=== PATIENT | female | born 1960 | race Caucasian/White ===

== ENCOUNTER 2016-06-19 14:55 | Inpatient (IN) | payer OTHER, MEDICARE ==
[~2016-06-19] VITALS: Ht 160 cm; Wt 90.7 kg
--- NOTE | 2016-06-19 15:08 | ED AMS/SEIZURE/WEAK/DIZZY ---
History of Present Illness General Chief Complaint: General Adult Stated Complaint: BIBA GEN WEAKNESS Source: patient, EMS Exam Limitations: no limitations Vital Signs & Intake/Output Vital Signs & Intake/Output Vital Signs Date Time Temp Pulse Resp B/P Pulse O2 O2 Flow FiO2 Ox Delivery Rate 06/19 1700 101.9 06/19 1655 101.9 121 18 134/90 98 06/19 1510 98.8 108 18 145/67 96 Room Air Allergies Coded Allergies: MDX - Steroid (Steroid) (UNKNOWN 07/09/11) Sulfa (Sulfonamide Antibiotics) (UNKNOWN 08/15/15) methylprednisolone (UNKNOWN 08/15/15) oxybutynin (UNKNOWN 08/15/15) solifenacin (UNKNOWN 08/15/15) tolterodine (UNKNOWN 08/15/15) Reconcile Medications Amantadine HCl (Amantadine) 100 MG TABLET 1 TAB PO BID MS (Reported) Amoxicillin/Potassium Clav (Augmentin 875-125 Tablet) 875 MG-125 MG TABLET 1 TAB PO BID UTI Atorvastatin Calcium (Lipitor) 20 MG TABLET 1 TAB PO DAILY HLD (Reported) Cholecalciferol (Vitamin D3) 1,000 UNIT TABLET 5 TAB PO DAILY VIT D (Reported ) Dalfampridine (Ampyra) 10 MG TAB.ER.12H 2 TAB PO BID MS (Reported) Glatiramer Acetate (Copaxone) 40 MG/ML SYRINGE 1 SYR SC Friday MS (Reported) Lisinopril (Prinivil) 10 MG TABLET 1 TAB PO DAILY HTN (Reported) Methylphenidate Hydrochloride (Ritalin) 10 MG TABLET 1 TAB PO BID ADD ( Reported) Multivitamin (Daily Value) 1 EACH TABLET 1 TAB PO DAILY MV (Reported) Paroxetine HCl (Paxil) 10 MG TABLET 1 TAB PO DAILY MOOD (Reported) Triage Nurses Notes Reviewed? yes Onset: Gradual Duration: week(s): (3) Timing: recent history Injury Environment: home Severity: severe No Modifying Factors: none Associated Symptoms: WEAKNESS, URINARYA INCONTINENCE HPI: 55-year-old female who presents to the ER by prison for chief complaint of progressive onset of weakness over the past 3 weeks. She has a history of MS currently on Copaxone. According to the sister 3 weeks ago she had URI symptoms and was determined that she had a cold. Never spiked a fever. She was in bed and couldn't get up for 3 days but then improved somewhat. However in the last 2 weeks her symptoms have gotten slowly worse. They called Dr. Katie Hoang and a visiting nurse out to the house on Friday. They examined her and said that her lungs were clear. The remaining back out to the house today. Today they wanted to bring her to her primary care doctor for evaluation but she couldn't walk down the stairs to get out of the house. She is also newly incontinent over the past one day. No dysuria or hematuria. No history of frequent UTIs. She's never been hospitalized for her diagnosis of MS. She was diagnosed at the age of 38. She does go to outpatient specials to receive injections of Past History Travel History Traveled to [place] past 21 day No Medical History Any Pertinent Medical History? see below for history Neurological: multiple sclerosis Cardiovascular: hypertension Surgical History Surgical History: none Psychosocial History Tobacco Use: Current Daily Use Daily Tobacco Use Amount/Type: => 5 Cigarettes daily Family History Hx Contributory? No Review of Systems Review of Systems Constitutional: Reports: malaise, weakness. Denies: chills, fever. EENTM: Reports: no symptoms. Respiratory: Denies: cough, short of breath. Cardiovascular: Denies: chest pain, palpitations. GI: Denies: abdominal pain. Genitourinary: Reports: see HPI (INCONTINENCE), frequency. Musculoskeletal: Denies: joint pain, joint swelling. Skin: Reports: no symptoms. Neurological/Psychological: Reports: no symptoms. Hematologic/Endocrine: Reports: polyuria. Denies: bruising, bleeding. Immunologic/Allergic: Denies: splenectomy. All Other Systems: Reviewed and Negative Physical Exam Physical Exam General Appearance: well developed/nourished, alert, awake, moderate distress, obese Head: atraumatic, normal appearance Eyes: Bilateral: normal appearance, PERRL, EOMI. Ears, Nose, Throat: normal pharynx, normal ENT inspection, hearing grossly normal Neck: normal inspection, supple, full range of motion Respiratory: normal breath sounds, chest non-tender, no respiratory distress Cardiovascular: regular rate/rhythm Peripheral Pulses: 2+ radial (R), 2+ radial (L) Gastrointestinal: normal bowel sounds, soft, non-tender Extremities: normal range of motion Neurologic/Psych: no motor/sensory deficits, awake, alert Skin: intact, warm/dry Core Measures ACS in differential dx? No CVA/TIA Diagnosis: No Severe Sepsis Present: No Septic Shock Present: No ED Sepsis Exam Date of Focused Sepsis Exam: 06/19/16 Time of Focused Sepsis Exam: 1701 Sepsis Cardiac Exam: Tachycardia Sepsis Resp Exam: CTA Sepsis Cap Refill Exam: <2 Sec Sepsis Peripheral Pulse Exam: Normal Sepsis Peripheral Pulse Location: Radial Sepsis Skin Color Exam: Normal for Ethnicity Skin Temp/Moisture Exam: Warm/Dry Progress Differential Diagnosis: UTI, SEPSIS, PNEUMONIA, DEHYDRATION, KASSY, MS EXACERBATION Plan of Care: Orders Procedure Date/time Status Patient Data 06/19 1712 Active Admit to inpatient 06/19 1639 Active Add-on Test (ER Only) 06/19 1631 Active BLOOD CULTURE 06/19 1619 Active CULTURE,URINE 06/19 1544 Active Straight Cath 06/19 1520 Active URINALYSIS 06/19 1508 Complete TROPONIN LEVEL 06/19 1508 Complete COMPREHENSIVE METABOLIC PANEL 06/19 1508 Complete CBC WITHOUT DIFFERENTIAL 06/19 1508 Complete EKG 06/19 1508 Active Laboratory Tests 06/19/16 1604: Anion Gap 10, Estimated GFR 52 L, BUN/Creatinine Ratio 12.7, Glucose 118 H, Calcium 9.3, Total Bilirubin 0.4, AST 30, ALT 61 H, Alkaline Phosphatase 161 H , Troponin I < 0.01, Total Protein 6.4, Albumin 3.5, Globulin 2.9, Albumin/ Globulin Ratio 1.2, CBC w Diff MAN DIFF ORDERED, RBC 4.26, MCV 86.9, MCH 28.8, RDW 13.4, MPV 7.8, Gran % 94.6 H, Lymphocytes % 3.1 L, Monocytes % 2.1, Eosinophils % 0.1, Basophils % 0.1, Absolute Granulocytes 39.6 H, Absolute Lymphocytes 1.3, Absolute Monocytes 0.9 H, Absolute Eosinophils 0.1, Absolute Basophils 0, Platelet Estimate ADEQUATE, Normochromic RBCs VERIFIED, Polychromasia 1+, Poikilocytosis FEW, Anisocytosis 1+, Stomatocytes FEW, PUBS MCHC 33.2 06/19/16 1544: Urine Color YEL, Urine Clarity HAZY H, Urine pH 6.0, Ur Specific [place] 1.020, Urine Protein 100 H, Urine Ketones 15 H, Urine Nitrite POS H, Urine Bilirubin NEG, Urine Urobilinogen 0.2, Ur Leukocyte Esterase MOD H, Ur Microscopic SEDIMENT EXAMINED, Urine RBC 50-75 H, Urine WBC 50-75 H, Ur Epithelial Cells FEW, Urine Bacteria PACKD H, Urine Hemoglobin LARGE H, Urine Glucose NEG Microbiology 06/19 1650 BLOOD: Blood Culture - RECD 06/19 1628 BLOOD: Blood Culture - RECD 06/19 1544 URINE ROUT: Urine Culture - RECD labs, culture, iv fluids, iv abx ordered. D/W Dr. Diaz. Advises treatment for UTI, does not want to further her MS treatment at this time. EMILY [phone] (PAWEL RANGEL,JORGE) Diagnostic Imaging: Viewed by Me: Radiology Read. Discussed w/RAD: Radiology Read. CXR Impression: PATIENT: SANGEETA PRO PRESENT AGE: 55 PATIENT ACCOUNT NO: [id number] : 60 LOCATION: [facility] ORDERING PHYSICIAN: JORGE ARMAS MD SERVICE DATE: 06/19/16 EXAM TYPE: RAD - XRY-PORTABLE CHEST XRAY EXAMINATION: XR PORTABLE CHEST CLINICAL INFORMATION: Cough and weakness. COMPARISON: None TECHNIQUE: Portable AP view of the chest was obtained. FINDINGS: Cardia mediastinal silhouette is within normal limits. Lungs are clear. Bony thorax is intact. IMPRESSION: No acute pulmonary disease. DICTATED BY: SURENDRA CROOKS MD DATE/TIME DICTATED:06/19/161602 SHIPBOARD INTELLIGENCE ANALYST:BAR DATE/TIME TRANSCRIBED:06/19/161602 CONFIDENTIAL, DO NOT COPY WITHOUT APPROPRIATE AUTHORIZATION. <Electronically signed in Other Vendor System> SIGNED BY: SURENDRA CROOKS MD 06/19/16 1607 Initial ED EKG: RBBB, TACHYCARDIA AT 109 BPM Departure Departure Time of Disposition: 1644 Disposition: STILL A PATIENT Condition: Stable Clinical Impression Primary Impression: UTI (urinary tract infection) Secondary Impressions: KASSY (acute kidney injury), Exacerbation of multiple sclerosis, Sepsis Referrals: PATIENT HAS NO PRIMARY CARE DR Departure Forms: Customer Survey General Discharge Information Prescriptions: Current Visit Scripts Amoxicillin/Potassium Clav (Augmentin 875-125 Tablet) 1 TAB PO BID #19 TAB Admission Note Spoke With: REFUGIO CHEW MD Documentation of Exam: Documentation of any treatments & extenuating circumstances including Concerns Regarding Discharge (functional status, medication knowledge or non-compliance, living conditions, etc.) that warrant an admission rather than observation: [IV ABX, F/U BLOOD AND URINE CULTURE, IV FLUIDS, CONSULT DR DIAZ (AWARE OF PATIENT) WILL SEE FRIDAY, PHYSICAL THERAPY CONSULT]
--- NOTE | 2016-06-19 15:14 | NUR ---
55 YO FEMALE BIBA FROM HOME. PT HX OF MS. PT STATES SHE HAS BEEN GETTING PROGRESSIVEY WEAK AND UNABLE TO AMBULATE NOW. STATES SHE LIVES HOME WITH HER MOTHER AND HAS A VISITING NURSE A COUPLE DAYS A WEEK. PT STATES SHE HAS BEEN INCONTINENT OF URINE AT HOME. PT ALERT AND ORIENTED X3. DENIES PAIN ANYWHERE. PT NOTED WITH SWELLING TO BILATERAL LOWER EXTREMITIES, R>L. PER FAMILY SWELLING HAS COME DOWN. PER PT SHE HAD A COLD A COUPLE WEEKS AGO BUT WAS NOT ABLE TO SEE D/T RONEY FAIR, STATES THEY WERE IN TOUCH WITH DR ABOUT THE S/S.. PT C/O SLIGHT LINDEN. AT BEDSIDE FOR TONO
--- NOTE | 2016-06-19 16:00 | NUR ---
PT STRAIGHT CATH'D FOR URINE. OUTPUT 100CC DARK URINE. SPECIMEN SENT TO LAB
--- NOTE | 2016-06-19 16:07 | RADIOLOGY REPORT ---
EXAMINATION: XR PORTABLE CHEST CLINICAL INFORMATION: Cough and weakness. COMPARISON: None TECHNIQUE: Portable AP view of the chest was obtained. FINDINGS: Cardia mediastinal silhouette is within normal limits. Lungs are clear. Bony thorax is intact. IMPRESSION: No acute pulmonary disease.
--- NOTE | 2016-06-19 16:08 | NUR ---
BLOOD WORK DRAWN AND SENT TO LAB PT STATING "IM JUST TIRED AND WANT TO TRY TO SLEEP" LIGHTS DIMMED, CALL HARDY IN REACH. CORA REMAINS AT BEDSIDE.
--- NOTE | 2016-06-19 16:12 | NUR ---
500CC BOLUS INFUSING PER ORDER AT THIS TIME
[2016-06-19 16:22] LABS: ABSOLUTE BASOPHIL COUNT 0 /CUMM (0.0-0.2); ABSOLUTE GRANULOCYTE CT 39.6 /CUMM (1.4-6.5); BASOPHIL % 0.1 % (0.0-2.0)
[2016-06-19 16:28] LABS: ABSOLUTE EOSINOPHIL COUNT 0.1 /CUMM (0.0-0.7); ABSOLUTE LYMPH COUNT 1.3 /CUMM (1.2-3.4); ABSOLUTE MONOCYTE COUNT 0.9 /CUMM (0.10-0.60); EOSINOPHIL % 0.1 % (0-5); GRANULOCYTE % 94.6 % (42.2-75.2); MEAN CORPUSCULAR HGB 28.8 PG (27.0-31.0); MEAN CORPUSCULAR HGB CONC 33.2 G/DL (33.0-37.0); MEAN CORPUSCULAR VOLUME 86.9 FL (81.0-99.0); MEAN PLATELET VOLUME 7.8 FL (7.4-10.4); PLATELET COUNT 464 /CUMM (130-400); RBC DISTRIBUTION WIDTH 13.4 % (11.5-14.5); RED BLOOD CELL CT 4.26 /CUMM (4.20-5.40)
[2016-06-19 16:33] LABS: WHITE BLOOD CELL COUNT 41.8 /CUMM (4.8-10.8)
--- NOTE | 2016-06-19 16:40 | NUR ---
CRITICAL TEST RESULTS [id number] SANGEETA PRO 55 F TESTS AND RESULTS: WBC 41.8 Results received and read back by: DOMITILA FARNSWORTH Results received date and time: 06/19/16 1640 The following provider was notified of the results, and read the results back: JORGE ARMAS Notified date and time: 06/19/16 at 1640
--- NOTE | 2016-06-19 16:59 | NUR ---
BLOOD CULTURES X2 DRAWN AND SENT TO LAB. PT VERY DIFFICULT STICK, CULTURES OBTAINED FROM IV SITE. MD AT BEDSIDE TO DISUCSS PLAN OF CARE. PT TEMP 101.9 AT THIS TIME. IV TYLENOL INFUSING PER ORDER. PT MEDICATED WITH IV ROCEPHIN
--- NOTE | 2016-06-19 17:15 | History & Physical ---
MANUEL RANGEL,[facility] 06/19/16 1714: General Information and HPI MD Statement: I have seen and personally examined SANGEETA PRO and documented this H&P. The patient is a 55 year old F who presented with a patient stated chief complaint of [weakness and lethargic]. Source of Information: patient, family Exam Limitations: no limitations History of Present Illness: History was taken from the patient and her mother and sister was at bedside. 55-year-old female with a past medical history of MS, hypertension, hyperlipidemia mood disorder and trigger finger who presented with a chief complaint of generalized weakness. Patient did not had any MS exacerbation since she was diagnosed at age of 19. 3 weeks ago patient had symptoms of URI, after a sick contacts (her nephews). Patient was improving until 2 days ago when she started to feel weak and couldn' t ambulate. Patient denies headache, change in vision, change in hearing, focal neurological deficits. Patient denies dysuria, hematuria, fever or chills. Patient ambulates using a walker at baseline, she lives with her mother, her sister is her caregiver. Allergies/Medications Allergies: Coded Allergies: MDX - Steroid (Steroid) (UNKNOWN 07/09/11) Sulfa (Sulfonamide Antibiotics) (UNKNOWN 08/15/15) methylprednisolone (UNKNOWN 08/15/15) oxybutynin (UNKNOWN 08/15/15) solifenacin (UNKNOWN 08/15/15) tolterodine (UNKNOWN 08/15/15) Home Med list Amantadine HCl (Amantadine) 100 MG TABLET 1 TAB PO BID MS (Reported) Atorvastatin Calcium (Lipitor) 20 MG TABLET 1 TAB PO DAILY HLD (Reported) Cholecalciferol (Vitamin D3) 1,000 UNIT TABLET 5 TAB PO DAILY VIT D (Reported ) Dalfampridine (Ampyra) 10 MG TAB.ER.12H 2 TAB PO BID MS (Reported) Glatiramer Acetate (Copaxone) 40 MG/ML SYRINGE 1 SYR SC Friday MS (Reported) Lisinopril (Prinivil) 10 MG TABLET 1 TAB PO DAILY HTN (Reported) Methylphenidate Hydrochloride (Ritalin) 10 MG TABLET 1 TAB PO BID ADD ( Reported) Multivitamin (Daily Value) 1 EACH TABLET 1 TAB PO DAILY MV (Reported) Paroxetine HCl (Paxil) 10 MG TABLET 1 TAB PO DAILY MOOD (Reported) Past History Travel History Traveled to [place] past 21 day No Medical History Neurological: multiple sclerosis EENT: NONE Cardiovascular: hypertension, hyperlipidemia Respiratory: NONE Gastrointestinal: NONE Hepatic: NONE Renal: NONE Musculoskeletal: DROP FOOT (LEFT), trigger finger and both hands Psychiatric: depression Endocrine: NONE Surgical History Surgical History: surgery on the right little finger to release the trigger finger contraction Past Family/Social History Family History Relations & Conditions if any FATHER FH: asthma FH: diabetes mellitus FH: glaucoma FH: hyperlipidemia FH: hypertension FH: prostate cancer MOTHER Angina FH: breast cancer Review of Systems Review of Systems Constitutional: Reports: weakness. Denies: chills, fever. EENTM: Denies: blurred vision, double vision, visual changes, hearing changes. Cardiovascular: Denies: chest pain, palpitations. Respiratory: Denies: cough, hemoptysis, short of breath, wheezing. GI: Denies: abdominal pain, constipation, diarrhea, nausea, vomiting. Genitourinary: Denies: dysuria, hematuria. Neurological/Psychological: Reports: other (left foot drop). Denies: tingling, tremors. Exam & Diagnostic Data Last 24 Hrs of Vital Signs/I&O Vital Signs Date Time Temp Pulse Resp B/P Pulse O2 O2 Flow FiO2 Ox Delivery Rate 06/19 2034 Room Air 06/19 2014 100.3 125 24 178/80 92 Room Air 06/19 1847 101.2 100 18 132/84 98 Room Air 06/19 1751 101.3 06/19 1700 101.9 06/19 1655 101.9 121 18 134/90 98 06/19 1520 98 Room Air 06/19 1510 98.8 108 18 145/67 96 Room Air Intake & Output 06/19 1600 06/19 0800 06/19 0000 Intake Total Output Total Balance Patient 90.718 kg Weight Physical Exam General Appearance Alert, Oriented X3, Cooperative, No Acute Distress Skin No Rashes HEENT Atraumatic, PERRLA, EOMI, Mucous Membr. moist/pink Cardiovascular Regular Rate, Normal S1, Normal S2, No Murmurs Lungs Clear to Auscultation Abdomen Soft, No Tenderness Neurological Normal Speech, Strength at 5/5 X4 Ext (except left ankle 2/5), Cranial Nerves 3-12 NL Extremities No Clubbing, No Cyanosis, No Edema Last 24 Hrs of Labs/Ulises: Laboratory Tests 06/19/16 1604: Anion Gap 10, Estimated GFR 52 L, BUN/Creatinine Ratio 12.7, Glucose 118 H, Calcium 9.3, Total Bilirubin 0.4, AST 30, ALT 61 H, Alkaline Phosphatase 161 H , Troponin I < 0.01, Total Protein 6.4, Albumin 3.5, Globulin 2.9, Albumin/ Globulin Ratio 1.2, CBC w Diff MAN DIFF ORDERED, RBC 4.26, MCV 86.9, MCH 28.8, RDW 13.4, MPV 7.8, Gran % 94.6 H, Lymphocytes % 3.1 L, Monocytes % 2.1, Eosinophils % 0.1, Basophils % 0.1, Absolute Granulocytes 39.6 H, Absolute Lymphocytes 1.3, Absolute Monocytes 0.9 H, Absolute Eosinophils 0.1, Absolute Basophils 0, Platelet Estimate ADEQUATE, Normochromic RBCs VERIFIED, Polychromasia 1+, Poikilocytosis FEW, Anisocytosis 1+, Stomatocytes FEW, PUBS MCHC 33.2 06/19/16 1544: Urine Color YEL, Urine Clarity HAZY H, Urine pH 6.0, Ur Specific [place] 1.020, Urine Protein 100 H, Urine Ketones 15 H, Urine Nitrite POS H, Urine Bilirubin NEG, Urine Urobilinogen 0.2, Ur Leukocyte Esterase MOD H, Ur Microscopic SEDIMENT EXAMINED, Urine RBC 50-75 H, Urine WBC 50-75 H, Ur Epithelial Cells FEW, Urine Bacteria PACKD H, Urine Hemoglobin LARGE H, Urine Glucose NEG Microbiology 06/19 1650 BLOOD: Blood Culture - RECD 06/19 1628 BLOOD: Blood Culture - RECD 06/19 1544 URINE ROUT: Urine Culture - RECD Assessment/Plan Assessment: 55-year-old female with a past medical history of multiple sclerosis, however in neurological exam she has 5/5 except on the left ankle joint(history of drop foot). Patient started to have weakness within the last 48 hours. Even though that she denies any urinary symptoms, she was found to have UTI and WBCs of 41, 000. She was also found to have a creatinine of 1.1 (above baseline). She also had elevated ALTs and alkaline phosphatase. 1.UTI * Urine blood cultures * We will start patient on IV ceftriaxone [place] * IV normal saline 2. Hypertension, hyperlipidemia, mood disorder, and MS We will continue home meds including * amantadine, Copaxone as per Dr. Byrd (will see patient on Friday) * Lisinopril * Paxil * Lipitor 3. Skin fungal infection * Nystatin powder 3 times a day Regular diet DVT prophylaxis with heparin subcutaneous Full code As Ranked By This Provider Problem List: 1. UTI (urinary tract infection) 2. KSASY (acute kidney injury) Core Measures/Miscellaneous Acute Coronary Syndrome ACS Diagnosis: No Cerebrovascular Accident CVA/TIA Diagnosis: No Congestive Heart Failure CHF Diagnosis: No Venous Thromboembolism VTE Risk Factors: Acute medical illness, Age > 40 [facility] prophylaxis d/t: No contraindications No VTE Pharm Prophylaxis d/t: No contraindications VTE Diagnosis: No VTE Type: NONE VTE Confirmed by (Test): NONE Severe Sepsis Severe Sepsis Present: No Septic Shock Septic Shock Present: No Miscellaneous Documentation Attending Case Discussed With: REFUGIO CHEW MD Primary Care Physician: TREVA MERRITT MD, I. Patient sees these Specialists TREVA MERRITT MD, I. Level of Patient Care: General Medicine SHARAD OSPINA MD 06/19/16 1733: Resident Review Statement Resident Statement: examined this patient, discussed with physician/internist Other Findings: This is a 55-year-old lady with history significant for multiple sclerosis diagnosed at age 38 in the year 1997, hypertension, hyperlipidemia, mood disorder presents to the emergency room with her mother and sister with a chief complaint of difficulty getting out of bed, feeling weak and difficulty ambulating. Patient has not had a single MS exacerbation since her diagnosis over 19 years ago now. States that she has some URI-like symptoms couple weeks ago that started to get better but over the course of last couple of days she has been extremely weak, has been having difficulty getting out of bed. No vision changes, muscular or neuro deficits or scanning speech. Denies any dysuria, hematuria, pyuria, burning on urination. While in the emergency room she has a elevated white count and found to have a urinary tract infection. Chest x-ray is benign Labs show white count of 41,000, no bands Physical exam and neuro exam is benign; drop foot and left leg is chronic Assessment- 1. UTI 2. Hypokalemia 3.6 3. MS 4. HTN 5. HLD 6. Depression 7. KASSY Plan- GEN med admit Panculture Vitals per protocol 1 g ceftriaxone every 24 hours Replete potassium Okay to continue all MS meds which include amantadine, empyema, Copaxone per Dr. Byrd, he will see the patient on Friday IV fluids 2 L DVT prophylaxis with subcutaneous heparin Heart healthy diet Pain pathway next Full code JEEVAN RANGEL,REFUGIO 06/20/16 0810: Attending MD Review Statement Attending Statement Attending MD Statement: examined this patient, discuss w/resident/PA/SALES SERVICE COORDINATOR, agreed w/resident/PA/SALES SERVICE COORDINATOR, reviewed EMR data (avail) Attending Assessment/Plan: 55F PMH multiple sclerosis, HTN, HLD presenting with fever, generalized weakness , found to have WBC 40k and dirty UA. Hemodynamically stable. Started Ceftriaxone and IV fluids. Has chronic foot drop from MS, but no new neurological symptoms. Dr Wood was consulted, said do not treat for MS exacerbation and he will see her today. Cultures pending.
--- NOTE | 2016-06-19 17:18 | NUR ---
HOUSE STAFF AT BEDSIDE FOR EVAL
[2016-06-19] MEDS ORDERED: AMANTADINE100 M2 PO (17:44)
[2016-06-19] MEDS ORDERED: RITALIN10 MG PO (17:45)
[2016-06-19] MEDS ORDERED: AMPYRA10 M1 PO (17:45)
[2016-06-19] MEDS ORDERED: PRINIVIL10 M1 PO (17:45)
[2016-06-19] MEDS ORDERED: LIPITOR20 M2 PO (17:45)
[2016-06-19] MEDS ORDERED: DAILY VALUE1 EACH PO (17:46)
[2016-06-19] MEDS ORDERED: PAXIL10 M1 PO (17:46)
[2016-06-19] MEDS ORDERED: VITAMIN D31000 UNI2 PO (17:46)
[2016-06-19] MEDS ORDERED: COPAXONE40 MG/1 ML SC (17:50)
--- NOTE | 2016-06-19 17:51 | NUR ---
TEMP 101.3 AT THIS TIME. PT SITTING UP TALKING WITH FAMILY AT BEDSIDE. PT OFFERS NO COMPLAINTS AT THIS TIME. AWARE WAITING ON BED ASSIGNMENT
--- NOTE | 2016-06-19 18:24 | NUR ---
PT ASSIGNED ROOM 223-2
--- NOTE | 2016-06-19 18:48 | NUR ---
REPORT GIVEN TO DUC ON 2NA. DISTRIBUTION CALLED
[2016-06-19 20:15] VITALS: BP 178/80
--- NOTE | 2016-06-19 21:00 | NUR ---
PT A&Ox3, FALLING ASLEEP BETWEEN QUESTIONS DURING ADMISSION. FAMILY AT BEDSIDE TO HELP ANSWER QUESTIONS. ELEVATED B/P AND PULSE, NOTIFIED [employer] WORKER.
--- NOTE | 2016-06-19 23:19 | NUR ---
PT DENIES PAIN BUT HOT TO TOUCH, RECTAL TEMP 103.5 @ 2129. NOTIFIED SHILPI CHIRINOS MD. ADMINISTERED IV TYLENOL AND 2239 TEMP 101.7, PT FEELING BETTER, MORE ALERT, NOT HOT OR COLD. WILL PASS ON TO NIGHT NURSE, DIEGO Vallecillo
[2016-06-19 23:36] VITALS: BP 130/68
[2016-06-20 03:52] VITALS: BP 180/80
--- NOTE | 2016-06-20 04:16 | Event Note ---
Event Note Event Note: Both sets of bcx + for GNR. Pt tachycardic to 130's complained of SOB, satting at 90, with BP 180/80. Pt put on 2L NC and satting 95% Pt denies any SOB on NC, denies any CP, N/V/ dizziness. Have ordered cxr, cbc, bep, repeat lactic acid. Antibiotic coverage broadened; can taper pending culture results.
[2016-06-20 04:46] LABS: ABSOLUTE BASOPHIL COUNT 0.1 /CUMM (0.0-0.2); ABSOLUTE EOSINOPHIL COUNT 0 /CUMM (0.0-0.7); ABSOLUTE GRANULOCYTE CT 32.8 /CUMM (1.4-6.5); BASOPHIL % 0.4 % (0.0-2.0); EOSINOPHIL % 0 % (0-5); GRANULOCYTE % 93.9 % (42.2-75.2); HEMATOCRIT 34.2 % (37-47); MEAN CORPUSCULAR HGB 28.9 PG (27.0-31.0); MEAN CORPUSCULAR HGB CONC 33.3 G/DL (33.0-37.0); MEAN PLATELET VOLUME 7.8 FL (7.4-10.4); PLATELET COUNT 399 /CUMM (130-400); RBC DISTRIBUTION WIDTH 13.6 % (11.5-14.5); RED BLOOD CELL CT 3.93 /CUMM (4.20-5.40)
--- NOTE | 2016-06-20 04:49 | NUR ---
AT APPROX 0330 PATIENT WOKE UP AND COMPLAINED OF ACUTE SOB. PT PLACED IN HIGH CISNEROS'S POSITION. VS: BP 180/80, HR 133, RR 24, O2 90% ON RA, TEMP 101.7 RECTALLY. PT PLACED ON 02 2L NC WITH INCREASED SAT TO 96%. MD CHIRINOS MADE AWARE AND AT BEDSIDE. CONCURRENTLY, 4/4 BLOOD CULTURES WERE REPORTED POSITIVE FOR GRAM NEGATIVE RODS (BOTH AEROBIC AND ANEROBIC). STAT LABS WERE ORDERED AND PERFORMED. WILL CONTINUE TO CLOSELY MONITOR.
[2016-06-20 06:52] VITALS: BP 148/70
--- NOTE | 2016-06-20 07:29 | PN- Housestaff ---
MANUEL RANGEL,[facility] 06/20/16 0729: Subjective Follow-up For: Generalize weakness UTI Positive blood culture(bacteremia) Subjective: Temperature was 101.7 at 3 AM, WBCs 35. Ration had positive gram-negative rods on blood culture. Last night she desaturated, now she is saturating 95+ on 2 L of oxygen. Patient is complaining of mild cough productive of some phlegm but chest pain. Review of Systems Constitutional: Reports: see HPI. Denies: chills, fever, weakness. Objective Last 24 Hrs of Vital Signs/I&O Vital Signs Date Time Temp Pulse Resp B/P Pulse O2 O2 Flow FiO2 Ox Delivery Rate 06/20 0652 98.3 105 22 148/70 96 Nasal 2.0L Cannula 06/20 0544 99.1 06/20 0534 99.1 06/20 0353 101.7 24 93 Nasal 2.0L Cannula 06/20 0352 98.4 133 24 180/80 90 Room Air 06/20 0351 101.7 06/20 0111 99.0 06/19 2336 101.7 116 18 130/68 91 Room Air 06/19 2240 101.7 06/19 2141 103.5 06/19 2035 Room Air 06/19 2014 100.3 125 24 178/80 92 Room Air 06/19 1847 101.2 100 18 132/84 98 Room Air 06/19 1751 101.3 06/19 1700 101.9 06/19 1655 101.9 121 18 134/90 98 06/19 1520 98 Room Air 06/19 1510 98.8 108 18 145/67 96 Room Air Intake & Output 06/20 1600 06/20 0800 06/20 0000 Intake Total 1450 320 Output Total 100 Balance 1450 220 Intake, IV 970 200 Intake, Oral 480 120 Output, Urine 100 Patient 90.718 kg Weight Physical Exam General Appearance: Alert, Oriented X3, Cooperative, No Acute Distress Skin: No Rashes HEENT: Atraumatic, PERRLA, EOMI, Mucous Membr. moist/pink Cardiovascular: Regular Rate, Normal S1, Normal S2, No Murmurs Lungs: congested with decreased air entry all over lung bilaterally Abdomen: Soft, No Tenderness Neurological: Normal Speech, Strength at 5/5 X4 Ext (except left ankle( drop foot)) Extremities: +1 edema on lower extremity bilaterally Current Medications: Current Medications Sig/Vicki Start time Last Medication Dose Route Stop Time Status Admin Acetaminophen 1,000 MG Q6P PRN 06/19 2145 AC 06/20 N/A 1 UNIT IV 0351 Acetaminophen 650 MG Q6P PRN 06/19 1745 AC PO Acetaminophen 1,000 MG ONCE ONE 06/19 1700 DC 06/19 N/A 1 UNIT IV 06/19 1714 1700 Acetaminophen 0 .STK-MED ONE 06/19 1657 DC IV Acetaminophen/ 1 TAB Q6P PRN 06/19 1745 AC Hydrocodone Bitart PO Amantadine HCl 100 MG BID 06/19 2200 AC 06/19 PO 2209 Atorvastatin Calcium 20 MG 1700 06/20 1700 AC PO Ceftazidime 1,000 MG Q8H 06/20 0500 AC 06/20 IV 0525 Ceftriaxone Sodium 1,000 MG DAILY 06/20 1000 CAN Sodium Chloride 100 ML IV Ceftriaxone Sodium 0 .STK-MED ONE 06/19 1641 DC .ROUTE Ceftriaxone Sodium 1,000 MG ONCE ONE 06/19 1630 DC 06/19 IV 06/19 1631 1700 Cholecalciferol 5,000 IU DAILY 06/20 1000 AC PO Glatiramer Acetate 40 MG MoWeFr 06/19 1800 AC SC Heparin Sodium 5,000 UNIT Q8 06/19 2200 AC 06/20 (Porcine) SC 0525 Lisinopril 10 MG DAILY 06/20 1000 AC PO Methylphenidate HCl 10 MG 0730,1630 06/20 0730 AC PO Multivitamins 1 TAB DAILY 06/20 1000 AC Therapeutic PO Non-Formulary 0 SEE ADMIN CRITERIA 06/19 1800 UNVr Medication ANY Nystatin 1 GIULIANA TID 06/19 1834 AC 06/19 TOP 2145 Oxycodone/ 2 TAB Q6P PRN 06/19 1745 AC Acetaminophen PO Paroxetine HCl 10 MG DAILY 06/20 1000 AC PO Sodium Chloride 1,000 ML Q10H 06/19 1930 AC 06/20 IV 0627 Sodium Chloride 1,000 ML BOLUS ONE 06/19 1630 DC 06/19 IV 06/19 1729 1700 Sodium Chloride 500 ML BOLUS ONE 06/19 1545 DC 06/19 IV 06/19 1644 1612 Last 24 Hrs of Lab/Ulises Results Last 24 Hrs of Labs/Mics: Laboratory Tests 06/20/16 0600: Magnesium Cancelled, CBC w Diff Cancelled, WBC Cancelled, RBC Cancelled, Hgb Cancelled, Hct Cancelled, MCV Cancelled, MCH Cancelled, RDW Cancelled, Plt Count Cancelled, MPV Cancelled, [facility] Cancelled 06/20/16 0430: Anion Gap 10, Estimated GFR 52 L, BUN/Creatinine Ratio 14.5, Lactic Acid 1.2, Total Bilirubin 0.7, Direct Bilirubin 0.6 H, AST 28, ALT 53 H, Alkaline Phosphatase 142 H, Total Protein 5.6 L, Albumin 2.9 L, CBC w Diff MAN DIFF ORDERED, RBC 3.93 L, MCV 87.0, MCH 28.9, RDW 13.6, MPV 7.8, Gran % 93.9 H, Lymphocytes % 2.9 L, Monocytes % 2.8, Eosinophils % 0, Basophils % 0.4, Absolute Granulocytes 32.8 H, Segmented Neutrophils 96 H, Band Neutrophils 1, Absolute Lymphocytes 1.0 L, Lymphocytes 1 L, Monocytes 2, Absolute Monocytes 1.0 H, Absolute Eosinophils 0, Absolute Basophils 0.1, Platelet Estimate ADEQUATE, Polychromasia 1+, Ovalocytes FEW, [facility] 33.3, Fld Total RBCs Counted 100 06/20/16 0359: Lactic Acid Cancelled, CBC w Diff Cancelled, WBC Cancelled, RBC Cancelled, Hgb Cancelled, Hct Cancelled, MCV Cancelled, MCH Cancelled, RDW Cancelled, Plt Count Cancelled, MPV Cancelled, [facility] Cancelled 06/19/16 2120: Lactic Acid 1.4 06/19/16 1604: Anion Gap 10, Estimated GFR 52 L, BUN/Creatinine Ratio 12.7, Glucose 118 H, Calcium 9.3, Total Bilirubin 0.4, AST 30, ALT 61 H, Alkaline Phosphatase 161 H , Troponin I < 0.01, Total Protein 6.4, Albumin 3.5, Globulin 2.9, Albumin/ Globulin Ratio 1.2, CBC w Diff MAN DIFF ORDERED, RBC 4.26, MCV 86.9, MCH 28.8, RDW 13.4, MPV 7.8, Gran % 94.6 H, Lymphocytes % 3.1 L, Monocytes % 2.1, Eosinophils % 0.1, Basophils % 0.1, Absolute Granulocytes 39.6 H, Absolute Lymphocytes 1.3, Absolute Monocytes 0.9 H, Absolute Eosinophils 0.1, Absolute Basophils 0, Platelet Estimate ADEQUATE, Normochromic RBCs VERIFIED, Polychromasia 1+, Poikilocytosis FEW, Anisocytosis 1+, Stomatocytes FEW, PUBS MCHC 33.2 06/19/16 1544: Urine Color YEL, Urine Clarity HAZY H, Urine pH 6.0, Ur Specific Cool 1.020, Urine Protein 100 H, Urine Ketones 15 H, Urine Nitrite POS H, Urine Bilirubin NEG, Urine Urobilinogen 0.2, Ur Leukocyte Esterase MOD H, Ur Microscopic SEDIMENT EXAMINED, Urine RBC 50-75 H, Urine WBC 50-75 H, Ur Epithelial Cells FEW, Urine Bacteria PACKD H, Urine Hemoglobin LARGE H, Urine Glucose NEG Microbiology 06/200 NASOPHARYN: Influenza Virus A & B Rapid Smear - COMP 06/20 2119 LOWER RESP: Respiratory Culture - COLB 06/20 2119 LOWER RESP: Gram Stain - COLB 06/19 1650 BLOOD: Blood Culture - RES GRAM NEGATIVE RODS 06/19 1628 BLOOD: Blood Culture - RES GRAM NEGATIVE RODS 06/19 1544 URINE ROUT: Urine Culture - RECD Assessment/Plan Assessment: 55 year old female with a past medical history of MS, hypertension, hyperlipidemia and mood disorder who presented because of weakness and was found to have UTI . Patient initially was started on ceftriaxone that was switched to ceftazidime after she 2 x positive blood culture andurine culture for gram- negative rods. 1 septicemia secondary to UTI * Continue ceftazidime 1 g every 8 hours * Switch antibiotic based on sensitivity * Continue IV hydration with normal saline 2. KASSY and HTN * Stopped lisinopril * Start hydralazine when necessary * Repeat BEP daily 3. Skin fungal infection over lower abdomen * Continue nystatin powder 3 times a day 4. Hyperlipidemia * Continue Lipitor 5. MS and mood disorder * Continue home medication. Heart healthy diet DVT Px sc hep Full code Problem List: 1. KASSY (acute kidney injury) 2. Sepsis 3. Exacerbation of multiple sclerosis 4. UTI (urinary tract infection) Pain Ratin Pain Location: see A&P Pain Goal: Remain pain free Pain Plan: see A&P Tomorrow's Labs & Rationales: cbc and bep ZITA RANGEL,[facility] 06/20/16 1248: Attending MD Review Statement Attending Statement Attending MD Statement: examined this patient, discuss w/resident/PA/[employer]ISTORY PROFESSOR, agreed w/resident/PA/JEWISH HISTORY PROFESSOR, reviewed EMR data (avail), discussed with nursing, discussed with case mgmt, reviewed images, amended to note Attending Assessment/Plan: Patient seen and examined, feeling very exhausted and tired. Patient denies any pain, sob. She had a fever spike last night and her white blood cell count although slightly improved but still significantly high. Vital Signs Date Time Temp Pulse Resp B/P Pulse O2 O2 Flow FiO2 Ox Delivery Rate 06/20 0835 130/70 06/20 0800 Nasal 2.0L Cannula 06/20 0652 98.3 105 22 148/70 96 Nasal 2.0L Cannula 06/20 0544 99.1 06/20 0534 99.1 06/20 0353 101.7 24 93 Nasal 2.0L Cannula 06/20 0352 98.4 133 24 180/80 90 Room Air 06/20 0351 101.7 06/20 0111 99.0 06/19 2336 101.7 116 18 130/68 91 Room Air 06/19 2240 101.7 06/19 2141 103.5 06/19 2035 Room Air 06/19 2015 100.3 125 24 178/80 92 Room Air 06/19 1847 101.2 100 18 132/84 98 Room Air 06/19 1751 101.3 06/19 1700 101.9 06/19 1655 101.9 121 18 134/90 98 06/19 1520 98 Room Air 06/19 1510 98.8 108 18 145/67 96 Room Air on exam; aox3, nad. Looks somewhat lethargic. cv; s1,s2, rrr resp; clear abd; soft, nt, bs+ ext; no edema. skin: + fungal rash on groins. Laboratory Tests 06/20 06/20 0600 0430 Chemistry Sodium (137 - 145 mmol/L) 140 Potassium (3.5 - 5.1 mmol/L) 3.5 Chloride (98 - 107 mmol/L) 106 Carbon Dioxide (22 - 30 mmol/L) 23 Anion Gap (5 - 16) 10 BUN (7 - 17 mg/dL) 16 Creatinine (0.5 - 1.0 mg/dL) 1.1 H Estimated GFR (>60 ml/min) 52 L BUN/Creatinine Ratio (7 - 25 %) 14.5 Lactic Acid (0.7 - 2.1 mmol/L) 1.2 Magnesium Cancelled Total Bilirubin (0.2 - 1.3 mg/dL) 0.7 Direct Bilirubin (< 0.4 mg/dL) 0.6 H AST (14 - 36 U/L) 28 ALT (9 - 52 U/L) 53 H Alkaline Phosphatase (<127 U/L) 142 H Total Protein (6.3 - 8.2 g/dL) 5.6 L Albumin (3.5 - 5.0 g/dL) 2.9 L Hematology CBC w Diff Cancelled MAN DIFF ORDERED WBC (4.8 - 10.8 /CUMM) Cancelled 35.0 *H RBC (4.20 - 5.40 /CUMM) Cancelled 3.93 L Hgb (12.0 - 16.0 G/DL) Cancelled 11.4 L Hct (37 - 47 %) Cancelled 34.2 L MCV (81.0 - 99.0 FL) Cancelled 87.0 MCH (27.0 - 31.0 PG) Cancelled 28.9 RDW (11.5 - 14.5 %) Cancelled 13.6 Plt Count (130 - 400 /CUMM) Cancelled 399 MPV (7.4 - 10.4 FL) Cancelled 7.8 Gran % (42.2 - 75.2 %) 93.9 H Lymphocytes % (20.5 - 51.1 %) 2.9 L Monocytes % (1.7 - 9.3 %) 2.8 Eosinophils % (0 - 5 %) 0 Basophils % (0.0 - 2.0 %) 0.4 Absolute Granulocytes (1.4 - 6.5 /CUMM) 32.8 H Segmented Neutrophils (42.2 - 75.2 %) 96 H Band Neutrophils (0.0 - 5.0 %) 1 Absolute Lymphocytes (1.2 - 3.4 /CUMM) 1.0 L Lymphocytes (20.5 - 51.1 %) 1 L Monocytes (1.7 - 9.3 %) 2 Absolute Monocytes (0.10 - 0.60 /CUMM) 1.0 H Absolute Eosinophils (0.0 - 0.7 /CUMM) 0 Absolute Basophils (0.0 - 0.2 /CUMM) 0.1 Platelet Estimate (ADEQUATE) ADEQUATE Polychromasia 1+ Ovalocytes FEW PUBS MCHC (33.0 - 37.0 G/DL) Cancelled 33.3 Other Body Source Fld Total RBCs Counted (%) 100 06/20 06/19 06/19 0359 2120 1604 Chemistry Sodium (137 - 145 mmol/L) 138 Potassium (3.5 - 5.1 mmol/L) 3.6 Chloride (98 - 107 mmol/L) 102 Carbon Dioxide (22 - 30 mmol/L) 26 Anion Gap (5 - 16) 10 BUN (7 - 17 mg/dL) 14 Creatinine (0.5 - 1.0 mg/dL) 1.1 H Estimated GFR (>60 ml/min) 52 L BUN/Creatinine Ratio (7 - 25 %) 12.7 Glucose (65 - 99 mg/dL) 118 H Lactic Acid (0.7 - 2.1 mmol/L) Cancelled 1.4 Calcium (8.4 - 10.2 mg/dL) 9.3 Total Bilirubin (0.2 - 1.3 mg/dL) 0.4 AST (14 - 36 U/L) 30 ALT (9 - 52 U/L) 61 H Alkaline Phosphatase (<127 U/L) 161 H Troponin I (< 0.11 ng/ml) < 0.01 Total Protein (6.3 - 8.2 g/dL) 6.4 Albumin (3.5 - 5.0 g/dL) 3.5 Globulin (1.9 - 4.2 gm/dL) 2.9 Albumin/Globulin Ratio (1.1 - 2.2 %) 1.2 Hematology CBC w Diff Cancelled MAN DIFF ORDERED WBC (4.8 - 10.8 /CUMM) Cancelled 41.8 *H RBC (4.20 - 5.40 /CUMM) Cancelled 4.26 Hgb (12.0 - 16.0 G/DL) Cancelled 12.3 Hct (37 - 47 %) Cancelled 37.0 MCV (81.0 - 99.0 FL) Cancelled 86.9 MCH (27.0 - 31.0 PG) Cancelled 28.8 RDW (11.5 - 14.5 %) Cancelled 13.4 Plt Count (130 - 400 /CUMM) Cancelled 464 H MPV (7.4 - 10.4 FL) Cancelled 7.8 Gran % (42.2 - 75.2 %) 94.6 H Lymphocytes % (20.5 - 51.1 %) 3.1 L Monocytes % (1.7 - 9.3 %) 2.1 Eosinophils % (0 - 5 %) 0.1 Basophils % (0.0 - 2.0 %) 0.1 Absolute Granulocytes (1.4 - 6.5 /CUMM) 39.6 H Absolute Lymphocytes (1.2 - 3.4 /CUMM) 1.3 Absolute Monocytes (0.10 - 0.60 /CUMM) 0.9 H Absolute Eosinophils (0.0 - 0.7 /CUMM) 0.1 Absolute Basophils (0.0 - 0.2 /CUMM) 0 Platelet Estimate (ADEQUATE) ADEQUATE Normochromic RBCs VERIFIED Polychromasia 1+ Poikilocytosis FEW Anisocytosis 1+ Stomatocytes FEW PUBS MCHC (33.0 - 37.0 G/DL) Cancelled 33.2 06/19 1544 Urines Urine Color (YEL,AMB,STR) YEL Urine Clarity (CLEAR) HAZY H Urine pH (5.0 - 8.0) 6.0 Ur Specific Cool (1.001 - 1.035) 1.020 Urine Protein (NEG,<30 MG/DL) 100 H Urine Ketones (NEG) 15 H Urine Nitrite (NEG) POS H Urine Bilirubin (NEG) NEG Urine Urobilinogen (0.1 - 1.0 EU/dl) 0.2 Ur Leukocyte Esterase (NEG) MOD H Ur Microscopic SEDIMENT EXAMINED Urine RBC (0 - 5 /HPF) 50-75 H Urine WBC (0 - 2 /HPF) 50-75 H Ur Epithelial Cells (NONE,FEW) FEW Urine Bacteria (NEG/NONE) PACKD H Urine Hemoglobin (NEG) LARGE H Urine Glucose (N MG/DL) NEG A/P; 55 y/o F with pmh sig for MS, hypertension, hyperlipidemia mood disorder and trigger finger admitted with sepsis likely secondary to UTI and possible pyelonephritis as well as now having bacteremia. Patient also has generalized weakness likely secondary to the infection. Patient also has acute kidney injury likely secondary to dehydration. Continue IV antibiotics and follow-up on the cultures. Patient's antibiotics were broadened last night which I agree with and will let follow-up on the cultures and adjust and hepatic accordingly. Continue gentle IV hydration. Use hydralazine when necessary for uncontrolled hypertension. Will stop the STEFFEN inhibitor for now secondary to acute kidney injury. Continue on other current medications. Nystatin for fungal rash. DVT px: Heparin subcutaneous. PT evaluation will be obtained.
--- NOTE | 2016-06-20 08:13 | Admission Certification ---
Admission Certification Certification Statement - As attending physician, I certify that at the time of - admission, based on clinical presentation, severity of - symptoms, need for further diagnostic testing and - therapeutic interventions, and risk of adverse outcomes - without in-hospital treatment, in my clinical assessment, - this patient requires an acute hospital stay for a minimum - of two nights or longer. I have also considered psychsocial - factors such as support system, advanced age, financial - issues, cognitive issues, and failed out-patient treatments, - past re-admission history, safety of patient, and lack of - compliance as applicable. Specific rationale supporting this admission is: Sepsis secondary to UTI
[2016-06-20 14:43] VITALS: BP 138/60
[2016-06-20 22:10] VITALS: BP 158/84
[2016-06-21] VITALS (7 sets, daily range): BP systolic 118–180; BP diastolic 60–98
--- NOTE | 2016-06-21 07:42 | PN- Housestaff ---
See Addendum Subjective Follow-up For: Septicemia most likely secondary to urinary tract infection Subjective: Still spiking fever with Tmax of 101.4. WBC is down to 17. Pending culture sensitivity. She is saturating upper 90s on 2 L. She has left lower extremity edema. She reported mild improvement comparing to yesterday. Review of Systems Constitutional: Reports: no symptoms. Objective Last 24 Hrs of Vital Signs/I&O Vital Signs Date Time Temp Pulse Resp B/P Pulse O2 O2 Flow FiO2 Ox Delivery Rate 06/21 0720 101.3 06/21 0720 101.4 06/21 0643 98.3 111 20 152/80 99 Nasal 1.5L Cannula 06/21 0111 98.4 06/21 0000 95 Nasal 1.0L Cannula 06/20 2210 97.5 112 20 158/84 95 06/20 2134 97.5 06/20 2035 101.3 06/20 2000 101.3 06/20 1641 98.1 06/20 1635 98.2 06/20 1516 100.4 06/20 1443 100.4 100 20 138/60 97 Nasal 2.0L Cannula 06/20 1438 Nasal 2.0L Cannula Intake & Output 06/21 1600 06/21 0800 06/21 0000 Intake Total 1040 Output Total 1 Balance 1040 -1 Intake, IV 800 Intake, Oral 240 Output, Stool 1 Physical Exam General Appearance: Alert, Oriented X3, Cooperative, No Acute Distress Skin: No Rashes HEENT: Atraumatic, PERRLA, EOMI, Mucous Membr. moist/pink Cardiovascular: Regular Rate, Normal S1, Normal S2, No Murmurs, tachy Lungs: Clear to Auscultation Abdomen: Soft, No Tenderness Neurological: Normal Speech Extremities: left LE edema Current Medications: Current Medications Sig/Vicki Start time Last Medication Dose Route Stop Time Status Admin Acetaminophen 650 MG Q4P PRN 06/21 0745 AC PO Acetaminophen 1,000 MG Q6P PRN 06/19 2145 DC 06/21 N/A 1 UNIT IV 0720 Acetaminophen 650 MG Q6P PRN 06/19 1745 AC PO Acetaminophen/ 1 TAB Q6P PRN 06/19 1745 AC Hydrocodone Bitart PO Amantadine HCl 100 MG BID 06/19 2200 AC 06/21 PO 0910 Atorvastatin Calcium 20 MG 1700 06/20 1700 AC 06/20 PO 1737 Ceftazidime 1,000 MG Q8H 06/20 0500 AC 06/21 IV 0431 Cholecalciferol 5,000 IU DAILY 06/20 1000 AC 06/21 PO 0911 Glatiramer Acetate 40 MG MoWeFr 06/19 1800 AC SC Heparin Sodium 5,000 UNIT Q8 06/19 2200 AC 06/21 (Porcine) SC 0431 Hydralazine HCl 10 MG 4 TIMES/DAY PRN 06/20 1030 AC PO Ibuprofen 400 MG .STK-MED ONE 06/21 0000 DC PO 06/21 0001 Ibuprofen 400 MG ONCE ONE 06/20 2345 DC 06/21 PO 06/20 2346 0004 Methylphenidate HCl 10 MG 0730,1630 06/20 0730 AC 06/21 PO 0912 Multivitamins 1 TAB DAILY 06/20 1000 AC 06/21 Therapeutic PO 0912 Non-Formulary 0 SEE ADMIN CRITERIA 06/19 1800 CAN Medication ANY Nystatin 1 GIULIANA TID 06/19 1834 AC 06/21 TOP 0911 Oxycodone/ 2 TAB Q6P PRN 06/19 1745 AC Acetaminophen PO Paroxetine HCl 10 MG DAILY 06/20 1000 AC 06/21 PO 0912 Patient Medication 1 ED .STK-MED ONE 06/20 1344 DC Teaching ED 06/20 1345 Sodium Chloride 1,000 ML Q10H 06/19 1930 AC 06/21 IV 0246 Last 24 Hrs of Lab/Ulises Results Last 24 Hrs of Labs/Mics: Laboratory Tests 06/21/16 0820: Anion Gap 10, Estimated GFR > 60, BUN/Creatinine Ratio 20.0, CBC w Diff NO MAN DIFF REQ, RBC 3.82 L, MCV 87.9, MCH 29.3, RDW 13.8, MPV 8.2, Gran % 94.1 H, Lymphocytes % 1.8 L, Monocytes % 3.8, Eosinophils % 0.3, Basophils % 0 L, Absolute Granulocytes 16.6 H, Absolute Lymphocytes 0.3 L, Absolute Monocytes 0.7 H, Absolute Eosinophils 0, Absolute Basophils 0, PUBS MCHC 33.4 Assessment/Plan Assessment: 55 year old female with a past medical history of MS, hypertension, hyperlipidemia and mood disorder who presented because of weakness and was found to have UTI . Patient initially was started on ceftriaxone that was switched to ceftazidime after she 2 x positive blood culture and urine culture for gram- negative rods. Culture sensitivity is not back. Patient still spiking fever. Patient has left lower extremity edema. 1 septicemia secondary to UTI * Continue ceftazidime 1 g every 8 hours * Switch antibiotic based on sensitivity * Continue IV hydration with normal saline * Pending abdominal and pelvis CT to rule out acute intra-abdominal pathology, or renal stone. 2. KASSY and HTN Creatinine improved after holding lisinopril and providing fluids * We will Keep holding lisinopril * Continue hydralazine when necessary for high blood pressure * Repeat BEP daily 3. Skin fungal infection over lower abdomen * Continue nystatin powder 3 times a day 4. Hyperlipidemia * Continue Lipitor 5. MS and mood disorder * Continue home medication. 6. Left lower extremity edema It's chronic left lower extremity edema because of left foot drop, however today she had a significant left lower extremity edema of +2. * Left lower extremity Doppler ultrasound to exclude DVT. Heart healthy diet DVT Px sc hep Full code Problem List: 1. UTI (urinary tract infection) 2. Sepsis 3. KSASY (acute kidney injury) Pain Ratin Pain Location: na Pain Goal: Remain pain free Pain Plan: see A&P Tomorrow's Labs & Rationales: cbc to f/u WBCs bep to f/u renal
[2016-06-21 08:31] LABS: ABSOLUTE BASOPHIL COUNT 0 /CUMM (0.0-0.2); ABSOLUTE EOSINOPHIL COUNT 0 /CUMM (0.0-0.7); ABSOLUTE GRANULOCYTE CT 16.6 /CUMM (1.4-6.5); ABSOLUTE LYMPH COUNT 0.3 /CUMM (1.2-3.4); ABSOLUTE MONOCYTE COUNT 0.7 /CUMM (0.10-0.60); BASOPHIL % 0 % (0.0-2.0); EOSINOPHIL % 0.3 % (0-5); GRANULOCYTE % 94.1 % (42.2-75.2); HEMATOCRIT 33.6 % (37-47); MEAN CORPUSCULAR HGB 29.3 PG (27.0-31.0); MEAN CORPUSCULAR HGB CONC 33.4 G/DL (33.0-37.0); MEAN CORPUSCULAR VOLUME 87.9 FL (81.0-99.0); MEAN PLATELET VOLUME 8.2 FL (7.4-10.4); PLATELET COUNT 296 /CUMM (130-400); RBC DISTRIBUTION WIDTH 13.8 % (11.5-14.5); RED BLOOD CELL CT 3.82 /CUMM (4.20-5.40)
[2016-06-21 08:53] LABS: WHITE BLOOD CELL COUNT 17.6 /CUMM (4.8-10.8)
--- NOTE | 2016-06-21 11:41 | ULTRASOUND REPORT ---
EXAMINATION: US TRIPLEX LOWER EXTREMITY, LEFT CLINICAL INFORMATION: Left lower extremity swelling COMPARISON: None TECHNIQUE: Color-flow triplex imaging with spectral analysis and compression Doppler were performed on the left lower extremity. FINDINGS: Respiratory variation, normal compression and augmented flow are noted throughout the lower extremity. The visualized common femoral vein, superficial femoral vein, profunda femoral vein, popliteal vein and midcalf peroneal and posterior tibial venous segments show no evidence of deep venous thrombosis. There is no Bill's cyst. IMPRESSION: Normal triplex scan without evidence of deep venous thrombosis involving the left lower extremity.
--- NOTE | 2016-06-21 12:31 | CT SCAN REPORT ---
EXAMINATION: CT ABDOMEN AND PELVIS WITHOUT CONTRAST CLINICAL INFORMATION: 55-year-old female with fever and possible pyelonephritis or renal abscess. COMPARISON: None TECHNIQUE: Multidetector volumetric imaging was performed from the superior aspect of the liver through the pubic symphysis. Sagittal and coronal reformatted images were obtained on the technologist's workstation. DLP: 1301.67 mGy-cm FINDINGS: LUNG BASES: Minimal atelectasis noted at the lung bases. No pericardial effusion. Coronary artery calcifications are present. LIVER, GALLBLADDER, AND BILIARY TREE: The unenhanced liver is normal in size, shape, and attenuation. No focal hepatic lesion or biliary ductal dilatation is present. Layering hyperdensity is seen within the gallbladder likely reflecting tiny stones or sludge. No significant pericholecystic fluid or gallbladder wall thickening. PANCREAS: Unremarkable. SPLEEN: Unremarkable. ADRENAL GLANDS: Unremarkable. KIDNEYS AND URETERS: Moderate to severe right hydronephrosis and proximal hydroureter secondary to a large calculus within the mid ureter measuring approximately 0.9 x 0.8 x 1.9 cm (image 50, series 2 and image 61, series 602). Several additional punctate calcifications are seen superior to the obstructing ureteral calculus. Additional renal calculi are noted within the right mid and lower poles. Mild to moderate perinephric stranding is noted. The right kidney appears edematous compared to left. There is no left hydronephrosis, hydroureter or calculi seen. Mild left perinephric stranding is present. BLADDER: Decompressed. GASTROINTESTINAL TRACT: There is no bowel obstruction, free intraperitoneal air or fluid. The appendix is not identified. ABDOMINAL WALL: No significant hernia is appreciated. LYMPH NODES: No mesenteric, retroperitoneal or pelvic lymphadenopathy. VASCULAR: Nonaneurysmal abdominal aorta containing mild to moderate atherosclerotic calcification. PELVIC VISCERA: Uterus and adnexa are grossly unremarkable. Small amount of pelvic free fluid is present. OSSEOUS STRUCTURES: There are no aggressive osseous lesions. Degenerative changes are seen within the lower lumbar spine. IMPRESSION: 1. Moderate to severe right hydronephrosis and proximal hydroureter secondary to a large obstructing calculus in the mid ureter. Additional small ureteral calculi and nonobstructing renal calculi are present. The right kidney appears edematous compared to the left and there is mild to moderate right perinephric stranding. Clinical and laboratory correlation recommended to exclude an associated infection. 2. Layering hyperdensity within the gallbladder likely reflecting tiny stones or sludge.
--- NOTE | 2016-06-21 13:07 | NUR ---
PATIENT ARRIVED TO FLOOR AT 1235 FROM ULTRASOUND. PT COMPLAINING OF HEADACHE 01/07. VS TAKEN: BP 180/98, TEMP PULSE 103, O2 98% ON 1L. MD JACKSON NOTIFIED. 2 TAB OF PERCOCET GIVEN FOR PAIN. VITALS WILL BE RECHECKED IN AN HOUR. PATIENT RESTING COMFORTABLY SLEEPING. MOTHER AT BEDSIDE
--- NOTE | 2016-06-21 15:04 | Patient Discharge Instructions ---
Discharge Instructions General Discharge Information You were seen/treated for: Urinary tract infection Kidney stone Special Instructions: Please follow-up with your primary care doctor within 1 week of discharge Please follow-up with your urology within 1 week of discharge Please recheck potassium level after 2 days of discharge Please come back if fever, chills, nausea, abdominal pain or vomiting. Diet Continue normal diet: Yes Recommended Diet: Regular Activity Full Activity/No Limits: Yes Activity Self Limited: Yes Acute Coronary Syndrome Inclusion Criteria At DC or during hospital stay patient has or had the following: ACS DIAGNOSIS No Discharge Core Measures Meds if any: Prescribed or Continued at Discharge Meds if any: NOT Prescribed or Continued at Discharge Congestive Heart Failure Inclusion Criteria At DC or during hospital stay patient has or had the following: CHF DIAGNOSIS No Discharge Core Measures Meds if any: Prescribed or Continued at Discharge Meds if any: NOT Prescribed or Continued at Discharge Cerebrovascular accident Inclusion Criteria At DC or during hospital stay patient has or had the following: CVA/TIA Diagnosis No Discharge Core Measures Meds if any: Prescribed or Continued at Discharge Meds if any: NOT Prescribed or Continued at Discharge Venous thromboembolism Inclusion Criteria VTE Diagnosis No VTE Type NONE VTE Confirmed by (Test) NONE Discharge Core Measures - Per Current guidelines, there needs to be overlap - treatment for the first 5 days of Warfarin therapy. - If discharged on Warfarin prior to 5 days of - overlap therapy, the patient will need to be - assessed for post discharge needs including - *Post discharge parental anticoagulation - *Warfarin and/or parental anticoagulation education - *Follow up date to check INR post discharge At least 5 days overlap therapy as Inpatient No Meds if any: Prescribed or Continued at Discharge Note: Overlap Therapy is Warfarin and Anticoagulant Meds if any: NOT Prescribed or Continued at Discharge
--- NOTE | 2016-06-21 15:59 | NUR ---
PT TAKEN DOWN TO OR AT THIS TIME. JUST BEFORE DISTRIBUTION ARRIVED PT FAMILY STATED THAT PT HAS A RASH ON RIGHT ARM. RED RAISED RASH NOTED ON RIGHT UPPER ARM PT DENIES ITCHING. VSS, HAND TOOL FILER CALLED TO ROOM TO ASSESS. WILL CONTINUE TO MONITOR. STABLE TO GO TO OR AT THIS TIME PER HAND TOOL FILER. CXR ALSO PERFORMED PRIOR TO OR.
--- NOTE | 2016-06-21 16:04 | RADIOLOGY REPORT ---
EXAMINATION: XR PORTABLE CHEST CLINICAL INFORMATION: Preoperative chest x-ray. COMPARISON: Portable chest x-ray 06/19/2016. TECHNIQUE: Portable AP view of the chest was obtained. FINDINGS: The lungs are hypoinflated without focal airspace consolidation. No pleural effusions or pneumothoraces are identified. Cardiomediastinal contours are stable. Soft tissues are unremarkable. No acute osseous abnormality is identified. IMPRESSION: No acute pulmonary process. Pulmonary hypoinflation.
--- NOTE | 2016-06-21 16:31 | Event Note ---
Event Note Event Note: Patient presented with symptoms of UTI, she was found to have positive blood culture and urine culture for gram-negative rods. She was spiking fever while on IV antibiotic. A CT abdomen and pelvis was done and reveals hydronephrosis with large obstructive nephrolithiasis. Emergency urology consult was placed, immediately urology (Dr. Tolliver) called back , urology is planning for cystoscopy and stent placement, patient was put nothing by mouth, chest x-ray and EKG was ordered. Urology is planning to place the stent later today
--- NOTE | 2016-06-21 17:41 | Cons- Urology ---
General Information and HPI Consulting Request Date of Consult: 06/21/16 Requested By: ZORAIDA AHUMADA MD Reason for Consult: fever,uti,hydronephrosis Source of Information: patient History of Present Illness: 55 year old obese female with multiple sclerosis, was unable to walk and became tired and became febrile. no flank pain or hx renal calculi;admitted and has persisting fever on fortaz. catscan reveals 1.9x0.9cm proximal right ureter calculus at lumber 4 level with prominent hydronephrosis;. also more proximal smaller right ureter calculi and lower pole right kidney calculus burden Allergies/Medications Allergies: Coded Allergies: MDX - Steroid (Steroid) (UNKNOWN 07/09/11) Sulfa (Sulfonamide Antibiotics) (UNKNOWN 08/15/15) methylprednisolone (UNKNOWN 08/15/15) oxybutynin (UNKNOWN 08/15/15) solifenacin (UNKNOWN 08/15/15) tolterodine (UNKNOWN 08/15/15) Home Med List: Amantadine HCl (Amantadine) 100 MG TABLET 1 TAB PO BID MS (Reported) Amoxicillin/Potassium Clav (Augmentin 875-125 Tablet) 875 MG-125 MG TABLET 1 TAB PO BID UTI Atorvastatin Calcium (Lipitor) 20 MG TABLET 1 TAB PO DAILY HLD (Reported) Cholecalciferol (Vitamin D3) 1,000 UNIT TABLET 5 TAB PO DAILY VIT D (Reported ) Dalfampridine (Ampyra) 10 MG TAB.ER.12H 2 TAB PO BID MS (Reported) Glatiramer Acetate (Copaxone) 40 MG/ML SYRINGE 1 SYR SC Friday MS (Reported) Lisinopril (Prinivil) 10 MG TABLET 1 TAB PO DAILY HTN (Reported) Methylphenidate Hydrochloride (Ritalin) 10 MG TABLET 1 TAB PO BID ADD ( Reported) Multivitamin (Daily Value) 1 EACH TABLET 1 TAB PO DAILY MV (Reported) Paroxetine HCl (Paxil) 10 MG TABLET 1 TAB PO DAILY MOOD (Reported) Current Medications: Current Medications Sig/Vicki Start time Last Medication Dose Route Stop Time Status Admin Acetaminophen 650 MG Q4P PRN 06/21 0745 AC PO Acetaminophen 1,000 MG Q6P PRN 06/19 2145 DC 06/21 N/A 1 UNIT IV 0720 Acetaminophen 650 MG Q6P PRN 06/19 1745 AC PO Acetaminophen/ 1 TAB Q6P PRN 06/19 1745 AC Hydrocodone Bitart PO Amantadine HCl 100 MG BID 06/19 2200 AC 06/21 PO 0910 Atorvastatin Calcium 20 MG 1700 06/20 1700 AC 06/20 PO 1737 Ceftazidime 1,000 MG Q8H 06/20 0500 AC 06/21 IV 1231 Cholecalciferol 5,000 IU DAILY 06/20 1000 AC 06/21 PO 0911 Diphenhydramine HCl 25 MG ONCE ONE 06/21 1645 DC IV 06/21 1646 Glatiramer Acetate 40 MG MoWeFr 06/21 1800 AC SC Glatiramer Acetate 40 MG MoWeFr 06/19 1800 DC SC Heparin Sodium 5,000 UNIT Q8 06/19 2200 AC 06/21 (Porcine) SC 1231 Hydralazine HCl 10 MG 4 TIMES/DAY PRN 06/20 1030 AC PO Ibuprofen 400 MG .STK-MED ONE 06/21 0000 DC PO 06/21 0001 Ibuprofen 400 MG ONCE ONE 06/20 2345 DC 06/21 PO 06/20 2346 0004 Methylphenidate HCl 10 MG 0730,1630 06/20 0730 AC 06/21 PO 0912 Multivitamins 1 TAB DAILY 06/20 1000 AC 06/21 Therapeutic PO 0912 Non-Formulary 0 SEE ADMIN CRITERIA 06/19 1800 CAN Medication ANY Nystatin 1 GIULIANA TID 06/19 1834 AC 06/21 TOP 0911 Oxycodone/ 2 TAB Q6P PRN 06/19 1745 AC 06/21 Acetaminophen PO 1228 Paroxetine HCl 10 MG DAILY 06/20 1000 AC 06/21 PO 0912 Patient Medication 1 ED ONE ONE 06/21 1330 DC Teaching ED 06/21 1331 Sodium Chloride 1,000 ML Q10H 06/19 1930 AC 06/21 IV 1244 Past History Medical History Blood Transfusion Hx: No Neurological: multiple sclerosis EENT: NONE Cardiovascular: hypertension, hyperlipidemia Respiratory: NONE Gastrointestinal: NONE Hepatic: NONE Renal: NONE Musculoskeletal: DROP FOOT (LEFT) trigger finger and both hands Psychiatric: depression Endocrine: NONE Blood Disorders: NONE Cancer(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/Reproductive: NONE Surgical History Pertinent Surgical History: surgery on the right little finger to release the trigger finger contraction Family History Relations & Conditions If Any: FATHER FH: asthma FH: diabetes mellitus FH: glaucoma FH: hyperlipidemia FH: hypertension FH: prostate cancer MOTHER Angina FH: breast cancer Psychosocial History Smoking Status: Current Everyday Smoker Exam & Diagnostic Data Vital Signs and I&O Vital Signs Date Time Temp Pulse Resp B/P Pulse O2 O2 Flow FiO2 Ox Delivery Rate 06/21 1512 97.5 20 20 120/60 97 06/21 1459 99.6 115 20 170/90 96 06/21 1300 100.0 103 180/98 06/21 0900 98.7 06/21 0800 Nasal 1.0L Cannula 06/21 0720 101.3 06/21 0720 101.4 06/21 0643 98.3 111 20 152/80 99 Nasal 1.5L Cannula 06/21 0111 98.4 06/21 0000 95 Nasal 1.0L Cannula 06/20 2210 97.5 112 20 158/84 95 06/20 2134 97.5 06/20 2035 101.3 06/20 2000 101.3 Intake & Output 06/21 1600 06/21 0800 06/21 0000 06/20 1600 06/20 0800 06/20 0000 Intake Total 1620 4699 732 0297 320 Output Total 150 1 100 Balance 1470 1040 -1 920 1450 220 Intake, IV 800 800 800 970 200 Intake, Oral 820 240 120 480 120 Number 1 2 Bowel Movements Output, Stool 1 Output, Urine 150 100 Patient 200 lb Weight Physical Exam: obese abdomen is soft Assessment/Plan Assessment/Plan right ureterolithiasis with obstructive hydronephrosis, secondary uti- acute pyelonephritis plan: cystoscopy with insertion right ureter stent to bypass calculus in ureter and drain kidney today Consult Acknowledgment - Thank you for your consult request. Attending MD Review Statement Attending Statement Attending Assessment/Plan: joão manriquez md urologist covering for dr. guzman
--- NOTE | 2016-06-21 17:50 | Operative Report ---
Operative/Inv Procedure Report Surgery Date: 06/21/16 Name of Procedure: cystoscopy with insertion right ureter stent Pre-Operative Diagnosis: right hydronephrosis, ureterolithiasis, uti Post-Operative Diagnosis: same Estimated Blood Loss: scant Surgeon/Glass Technician/Installer: ZITA RANGEL,ZORAIDA Anesthesia: general endotracheal tube Drains: 22cm 6 belizean double jj right ureter stent 16 belizean benavides urethral catheter Operative/Procedure Note Note: placed in lithotomy position 22 belizean rigid cystoscope passed into bladder. inserted up right ureter 6 belizean open ended ureter catheter to calcified proximal right ureter calculus under fluorscopy control; through it passed 0.035 glide wire beyond calculus into right renal collecting system;catheter removed; over wire passed 22cm 6 belizean jj ureter stent proximal end curling in right renal pelvis area; distal end curling in bladder; pusher, wire ,scope removed. fluoroscopy showed stent in proper position 16 belizean benavides inserted into bladder. 5cc balloon filled with 10cc water
--- NOTE | 2016-06-21 19:15 | NUR ---
PACU NOTE PT ARRIVED TO FLOOR AT THIS TIME DROWSY ARROUSABLE VSS ON 2L NC 96% BARAJAS DRAINING BLOODY URINE. APPROCX 30 CC IN BAG. IVF INFUSING. ICE CHIPS AND WATER GIVEN. DENIES PAIN DENIES NAUSEA. RASH TO UPPER ARMS APPEARS TO BE IMPROVED, DENIES ITCHING. MARKING DONE ON BOTH ARMS FROM OR NURSE. ALPS APPLIED. AFEBRILE. WILL CONT. TO MONITOR
[2016-06-22 00:52] VITALS: BP 112/64
--- NOTE | 2016-06-22 03:03 | RADIOLOGY REPORT ---
EXAMINATION: C-arm imaging, right renal stent placement CLINICAL INDICATION: Right renal stent placement. C-arm imaging. COMPARISON: CT scan abdomen pelvis 06/21/2016 TECHNIQUE: C-arm imaging. Fluoroscopy time 19 seconds. Number of images 20 FINDINGS: Initial images demonstrate placement of a guidewire into the right renal pelvis retrograde via the right ureter. A pigtail catheter was then subsequently placed into the right renal pelvis IMPRESSION: Placement of pigtail catheter right renal pelvis via right ureter retrograde.
[2016-06-22 06:00] VITALS: BP 128/64
[2016-06-22 07:57] LABS: ABSOLUTE BASOPHIL COUNT 0 /CUMM (0.0-0.2); ABSOLUTE EOSINOPHIL COUNT 0.1 /CUMM (0.0-0.7); ABSOLUTE LYMPH COUNT 0.7 /CUMM (1.2-3.4); ABSOLUTE MONOCYTE COUNT 0.8 /CUMM (0.10-0.60); BASOPHIL % 0.3 % (0.0-2.0); EOSINOPHIL % 1.1 % (0-5); GRANULOCYTE % 86.6 % (42.2-75.2); HEMATOCRIT 30.8 % (37-47); MEAN CORPUSCULAR HGB CONC 32.8 G/DL (33.0-37.0); MEAN CORPUSCULAR VOLUME 88.5 FL (81.0-99.0); MEAN PLATELET VOLUME 8.6 FL (7.4-10.4); PLATELET COUNT 340 /CUMM (130-400); RBC DISTRIBUTION WIDTH 14.3 % (11.5-14.5); RED BLOOD CELL CT 3.48 /CUMM (4.20-5.40); WHITE BLOOD CELL COUNT 12.7 /CUMM (4.8-10.8)
--- NOTE | 2016-06-22 08:23 | PN- Housestaff ---
YOSHI RANGEL,GE 06/22/16 0822: Subjective Follow-up For: Sepsis secondary to acute pyelonephritis Right ureterolithiasis with obstructive hydronephrosis Subjective: Cystoscopy was performed yesterday with placement of stent in right ureter. No acute events overnight. Patient had a low-grade fever of 100.6 this morning. Patient was seen and examined this morning. She feels much improved. She complains of some abdominal discomfort and cough. Later, patient complained of shortness of breath. Oxygen saturation was 94% on 2 L NC. Review of Systems Constitutional: Reports: see HPI. Objective Last 24 Hrs of Vital Signs/I&O Vital Signs Date Time Temp Pulse Resp B/P Pulse O2 O2 Flow FiO2 Ox Delivery Rate 06/22 1443 99.7 105 20 160/80 96 06/22 0800 Nasal 2.0L Cannula 06/22 0600 100.6 92 20 128/64 93 Nasal Cannula 06/22 0052 98.5 92 20 112/64 96 Nasal Cannula 06/22 0000 Nasal 2.0L Cannula 06/21 2137 98.2 99 20 118/70 100 06/21 1916 97.6 68 15 140/80 95 Nasal 2.0L Cannula Intake & Output 06/22 1600 06/22 0800 06/22 0000 Intake Total 850 700 600 Output Total 1000 1300 280 Balance -150 -600 320 Intake, IV 600 600 600 Intake, Oral 250 100 Output, Urine 1000 1300 280 Patient 90.718 kg Weight Physical Exam General Appearance: Alert, Oriented X3, No Acute Distress HEENT: Atraumatic, Mucous Membr. moist/pink Neck: Supple Cardiovascular: Regular Rate, Normal S1, Normal S2 Lungs: Clear to Auscultation Abdomen: Soft, No Tenderness, Positive Bowel Sounds Extremities: No Clubbing, No Cyanosis, LLE with 2+ Edema, RLE with 1+ Edema Current Medications: Current Medications Sig/Vicki Start time Last Medication Dose Route Stop Time Status Admin Acetaminophen 650 MG Q4P PRN 06/21 0745 AC PO Acetaminophen 650 MG Q6P PRN 06/19 1745 AC PO Acetaminophen/ 1 TAB Q6P PRN 06/19 1745 AC Hydrocodone Bitart PO Amantadine HCl 100 MG BID 06/19 2200 AC 06/22 PO 0921 Amoxicillin/ 875 MG Q12 06/23 1000 AC Clavulanate Potassium PO Atorvastatin Calcium 20 MG 1700 06/20 1700 AC 06/22 PO 1647 Ceftazidime 1,000 MG Q8H 06/20 0500 DC 06/22 IV 0609 Ceftriaxone Sodium 1,000 MG DAILY 06/22 1003 DC 06/22 IV 1301 Cholecalciferol 5,000 IU DAILY 06/20 1000 AC 06/22 PO 0919 Glatiramer Acetate 40 MG MoWeFr 06/21 1800 AC 06/21 SC 2139 Heparin Sodium 5,000 UNIT Q8 06/19 2200 AC 06/22 (Porcine) SC 1301 Hydralazine HCl 10 MG 4 TIMES/DAY PRN 06/20 1030 AC PO Hydromorphone HCl 2 MG .STK-MED ONE 06/21 1748 DC IM 06/21 1749 Methylphenidate HCl 10 MG 0730,1630 06/20 0730 AC 06/22 PO 1647 Multivitamins 1 TAB DAILY 06/20 1000 AC 06/22 Therapeutic PO 0919 Nystatin 1 GIULIANA TID 06/19 1834 AC 06/22 TOP 1648 Oxycodone/ 2 TAB Q6P PRN 06/19 1745 AC 06/21 Acetaminophen PO 1228 Paroxetine HCl 10 MG DAILY 06/20 1000 AC 06/22 PO 0920 Potassium Chloride 60 MEQ ONCE ONE 06/22 0845 DC 06/22 PO 06/22 0846 0913 Sodium Chloride 1,000 ML Q10H 06/19 1930 AC 06/22 IV 0617 Last 24 Hrs of Lab/Ulises Results Last 24 Hrs of Labs/Mics: Laboratory Tests 06/22/16 0614: Anion Gap 10, Estimated GFR > 60, BUN/Creatinine Ratio 20.0, Magnesium 2.0, CBC w Diff NO MAN DIFF REQ, RBC 3.48 L, MCV 88.5, MCH 29.0, RDW 14.3, MPV 8.6, Gran % 86.6 H, Lymphocytes % 5.5 L, Monocytes % 6.5, Eosinophils % 1.1, Basophils % 0.3, Absolute Granulocytes 11.0 H, Absolute Lymphocytes 0.7 L, Absolute Monocytes 0.8 H, Absolute Eosinophils 0.1, Absolute Basophils 0, PUBS MCHC 32.8 L UCx (06/21/16): >100,000 colonies/ml of Escherichia coli sensitive to cefazolin and Augmentin BCx (06/21/16): Escherichia coli x2 Orders Radiology Findings: No acute pulmonary process. Pulmonary hypoinflation. Miscellaneous Findings: LLE DOPPLER US: Normal triplex scan without evidence of deep venous thrombosis involving the left lower extremity. Assessment/Plan Assessment: 55 y/o F with PMHx of multiple sclerosis, HTN and HLD who is admitted for sepsis secondary to acute pyelonephritis s/p right ureteral stent placement for right ureterolithiasis with obstructive hydronephrosis. #Sepsis secondary to acute pyelonephritis: Found to have obstructive hydronephrosis 2/2 right ureteral calculus s/p right ureteral stent placement. Clinically improved with defervescence and improvement of leukocytosis. * Continue ceftriaxone 1 g IV daily. * Switch to Augmentin 875 mg PO BID tomorrow. * Most likely discharge home tomorrow if patient remains clinically stable. #Shortness of breath: Likely secondary to post-operative atelectasis and anxiety. Post-operative CXR with pulmonary hypoinflation. * Encourage incentive spirometry. * Robitussin PRN for cough. * Ativan 0.5 mg PO administered. #Hypokalemia: K has dropped to 3.4 today. Mg WNL at 2. * Repleted with 60 mEq of oral potassium. * Check K in the AM and replete as needed. #LLE edema: Doppler US with no evidence of DVT. * NTD. Diet: Heart Healthy DVT PPx: HSQ and ALPs CODE: FULL Problem List: 1. Hydronephrosis with obstructing calculus 2. Ureterolithiasis 3. Acute pyelonephritis 4. Sepsis 5. Hypokalemia 6. Atelectasis 7. Shortness of breath Pain Ratin Pain Location: N/A Pain Goal: Remain pain free Pain Plan: Tylenol 650 mg PO Q6H PRN for mild pain (scale 1-3) Vicodin 1 tab PO Q6H PRN for moderate pain (scale 4-6) Percocet 2 tabs PO Q6H PRN for severe pain (scale 7-10) Tomorrow's Labs & Rationales: CBC to monitor WBC in the setting of infection BMP to monitor lytes and kidney function in the setting of hypokalemia Discharge Plan Discharge Disposition: home Anticipated Discharge (Day): tomorrow AMIE RANGEL,SHMUEL 06/22/16 1334: Attending MD Review Statement Attending Statement Attending MD Statement: examined this patient, discuss w/resident/PA/REGISTERED REPRESENTATIVE, agreed w/resident/PA/REGISTERED REPRESENTATIVE, discussed with family, reviewed EMR data (avail), discussed with nursing, discussed with case mgmt, reviewed images, amended to note Attending Assessment/Plan: Patient sitting comfortably in bed. Mother and sister at bedside. Patient feeling much better. Status post cystoscopy with insertion of right ureteral stent. Patient did have low-grade fever this morning. Her white count has trended down. She tolerated her morning breakfast well. Will continue IV ceftriaxone today and switch her to oral antibiotics tomorrow. Patient can most probably be discharged tomorrow if stable. Recheck electrolytes tomorrow morning as her potassium was low.
[2016-06-22 14:43] VITALS: BP 160/80
[2016-06-22 22:40] VITALS: BP 140/80
[2016-06-23 06:18] VITALS: BP 134/76
[2016-06-23 07:43] LABS: ABSOLUTE BASOPHIL COUNT 0 /CUMM (0.0-0.2); ABSOLUTE EOSINOPHIL COUNT 0.2 /CUMM (0.0-0.7); ABSOLUTE LYMPH COUNT 1.2 /CUMM (1.2-3.4); ABSOLUTE MONOCYTE COUNT 1.1 /CUMM (0.10-0.60); BASOPHIL % 0.5 % (0.0-2.0); EOSINOPHIL % 2.2 % (0-5); GRANULOCYTE % 73.1 % (42.2-75.2); HEMATOCRIT 32.4 % (37-47); MEAN CORPUSCULAR HGB 28.7 PG (27.0-31.0); MEAN CORPUSCULAR VOLUME 87.1 FL (81.0-99.0); MEAN PLATELET VOLUME 8.1 FL (7.4-10.4); PLATELET COUNT 391 /CUMM (130-400); RBC DISTRIBUTION WIDTH 13.9 % (11.5-14.5); RED BLOOD CELL CT 3.72 /CUMM (4.20-5.40); WHITE BLOOD CELL COUNT 9.6 /CUMM (4.8-10.8)
--- NOTE | 2016-06-23 08:35 | PN- Housestaff ---
[facility] 0835: Subjective Follow-up For: -Sepsis secondary to acute pyelonephritis -Right ureterolithiasis with obstructive hydronephrosis Subjective: Afebrile, saturating well on room air, Lamar discontinued earlier this morning. WBCs normalized today. Patient reports significant improvement on her symptom and signs. Patient will be discharged to a short-term rehabilitation. Review of Systems Constitutional: Reports: no symptoms. Objective Last 24 Hrs of Vital Signs/I&O Vital Signs Date Time Temp Pulse Resp B/P Pulse O2 O2 Flow FiO2 Ox Delivery Rate 06/23 0800 98 Nasal 2.0L Cannula 06/23 0618 99.7 98 20 134/76 98 Nasal 2.0L Cannula 06/23 0000 Nasal 2.0L Cannula 06/22 2240 99.6 103 20 140/80 97 Nasal 2.0L Cannula 06/22 1745 94 Nasal 2.0L Cannula 06/22 1600 Nasal 2.0L Cannula 06/22 1443 99.7 105 20 160/80 96 Intake & Output 06/23 1600 06/23 0800 06/23 0000 Intake Total 625 840 Output Total 900 1525 1500 Balance -900 -900 -660 Intake, IV 525 600 Intake, Oral 100 240 Number 0 0 Bowel Movements Output, Urine 900 1525 1500 Physical Exam General Appearance: Alert, Oriented X3, Cooperative, No Acute Distress Skin: No Rashes HEENT: Atraumatic, PERRLA, EOMI, Mucous Membr. moist/pink Cardiovascular: Regular Rate, Normal S1, Normal S2, No Murmurs Lungs: Clear to Auscultation Abdomen: Normal Bowel Sounds, Soft, No Tenderness Neurological: Normal Speech Extremities: No Cyanosis, LE edema more on left than right Assessment/Plan Assessment: 55 y/o F with PMHx of multiple sclerosis, HTN and HLD who is admitted for sepsis secondary to acute pyelonephritis s/p right ureteral stent placement for right ureterolithiasis with obstructive hydronephrosis. #Sepsis secondary to acute pyelonephritis: Found to have obstructive hydronephrosis 2/2 right ureteral calculus s/p right ureteral stent placement. Clinically improved with defervescence and improvement of leukocytosis. * Continue Augmentin 875 mg PO BID to finish a total of 14 days * Patient will most likely be discharged later today for short-term rehabilitation #Shortness of breath: Likely secondary to post-operative atelectasis and anxiety. Post-operative CXR with pulmonary hypoinflation. Today patient saturating in the upper 90s on room air. #Hypokalemia: K has dropped to 3.4 today * Repleted with 40 mEq of oral potassium. * Patient will be instructed to repeat potassium while in the short-term rehabilitation #LLE edema: Doppler US with no evidence of DVT. * NTD. Diet: Heart Healthy DVT PPx: HSQ and ALPs CODE: FULL Problem List: 1. Hypokalemia 2. UTI (urinary tract infection) Pain Ratin Pain Location: NA Pain Goal: Remain pain free Pain Plan: See assessment and plan Tomorrow's Labs & Rationales: None as patient is a discharge AMIE RANGEL,SHMUEL 06/23/16 1236: Attending MD Review Statement Attending Statement Attending MD Statement: examined this patient, discuss w/resident/PA/BALER OPERATOR, agreed w/resident/PA/BALER OPERATOR, discussed with family, reviewed EMR data (avail), discussed with nursing, discussed with case mgmt, reviewed images, amended to note Attending Assessment/Plan: Patient feeling much better, the comfortably in bed. Her white count is within normal limits. Discontinue the Lamar. Make sure patient can void after the Lamar is discontinued. Continue Augmentin to complete a total of 14 day course. She can be discharged later today if she has no trouble voiding urine. Make sure she has follow-up appointments with her primary care physician and urologist. Replete potassium. Please repeat potassium in 2 days as an outpatient.
[2016-06-23] MEDS ORDERED: AUGMENTIN 875-1 EACH PO (12:43)
--- NOTE | 2016-06-23 13:08 | Discharge Summary ---
Visit Information Visit Dates Admission Date: 06/19/16 Discharge Date: 06/23/16 Hospital Course Course Attending Physician: ZORAIDA AHUMADA MD Primary Care Physician: TREVA MERRITT MD, I. Hospital Course: 55-year-old female with a past medical history of MS, hypertension, hyperlipidemia, mood disorder and trigger finger who presented with a chief complaint of generalized weakness. Patient did not had any MS exacerbation since she was diagnosed at age of 19. # Upper urinary tract infection with hydronephrosis secondary to obstructing kidney stone Patient had WBCs of 41,000, UTI on urinalysis, urine culture positive for gram- negative rods, 2 sets of blood culture positive for gram-negative throat. CT abdomen and pelvis hydronephrosis and proximal hydroureter secondary to a large obstructing calculus(detailed CT results can be found below) Patient was started on IV antibiotic, urology was involved and she was scheduled for stent placement. Patient symptom - improved post the procedure. She required 2 L of oxygen initially however on discharge she was saturating upper 90s on room air. Patient will be discharged to short-term rehabilitation. Instructions that was given to the patient on discharge * Please take antibiotic for 9 more days exactly as prescribed * Please repeat potassium level within 2 days * Please come back if symptom did not improve or became worse. * Please follow up with urology to further address the stent and the renal stone. * Urology Dr. Tolliver address can be found on the discharge instructions. #History of MS Controlled with current medication * Please continue all of his medication that was given to prior to admission. #Hypokalemia Patient had hypokalemia during this admission, she was provided with potassium as needed. On discharge patient was instructed to be potassium level after 2 days. Allergies: Coded Allergies: MDX - Steroid (Steroid) (UNKNOWN 07/09/11) Sulfa (Sulfonamide Antibiotics) (UNKNOWN 08/15/15) methylprednisolone (UNKNOWN 08/15/15) oxybutynin (UNKNOWN 08/15/15) solifenacin (UNKNOWN 08/15/15) tolterodine (UNKNOWN 08/15/15) Pertinent Lab Results: SERVICE DATE: 06/21/16-EXAM TYPE: CAT - CT ABD & PELVIS W/O IV CONTRAS EXAMINATION:CT ABDOMEN AND PELVIS WITHOUT CONTRAST CLINICAL INFORMATION: 55-year-old female with fever and possible pyelonephritis or renal abscess. COMPARISON: None TECHNIQUE: Multidetector volumetric imaging was performed from the superior aspect of the liver through the pubic symphysis. Sagittal and coronal reformatted images were obtained on the technologist's workstation. DLP: 1301.67 mGy-cm FINDINGS: LUNG BASES: Minimal atelectasis noted at the lung bases. No pericardial effusion. Coronary artery calcifications are present. LIVER, GALLBLADDER, AND BILIARY TREE: The unenhanced liver is normal in size, shape, and attenuation. No focal hepatic lesion or biliary ductal dilatation is present. Layering hyperdensity is seen within the gallbladder likely reflecting tiny stones or sludge. No significant pericholecystic fluid or gallbladder wall thickening. PANCREAS: Unremarkable. SPLEEN: Unremarkable. ADRENAL GLANDS: Unremarkable. KIDNEYS AND URETERS: Moderate to severe right hydronephrosis and proximal hydroureter secondary to a large calculus within the mid ureter measuring approximately 0.9 x 0.8 x 1.9 cm (image 50, series 2 and image 61, series 602). Several additional punctate calcifications are seen superior to the obstructing ureteral calculus. Additional renal calculi are noted within the right mid and lower poles. Mild to moderate perinephric stranding is noted. The right kidney appears edematous compared to left. There is no left hydronephrosis, hydroureter or calculi seen. Mild left perinephric stranding is present. BLADDER: Decompressed. GASTROINTESTINAL TRACT: There is no bowel obstruction, free intraperitoneal air or fluid. The appendix is not identified. ABDOMINAL WALL: No significant hernia is appreciated. LYMPH NODES: No mesenteric, retroperitoneal or pelvic lymphadenopathy. VASCULAR: Nonaneurysmal abdominal aorta containing mild to moderate atherosclerotic calcification. PELVIC VISCERA: Uterus and adnexa are grossly unremarkable. Small amount of pelvic free fluid is present. OSSEOUS STRUCTURES: There are no aggressive osseous lesions. Degenerative changes are seen within the lower lumbar spine. IMPRESSION: 1. Moderate to severe right hydronephrosis and proximal hydroureter secondary to a large obstructing calculus in the mid ureter. Additional small ureteral calculi and nonobstructing renal calculi are present. The right kidney appears edematous compared to the left and there is mild to moderate right perinephric stranding. Clinical and laboratory correlation recommended to exclude an associated infection. 2. Layering hyperdensity within the gallbladder likely reflecting tiny stones or sludge. DICTATED BY: BONG ROBLEDO DO DATE/TIME DICTATED:06/21/161212 GLOBAL ENGINEERING MANAGER:BAR DATE/TIME TRANSCRIBED:06/21/161212 Disposition Summary Disposition Principal Diagnosis: Sepsis secondary to upper urinary tract infection with hydronephrosis secondary to large obstructing kidney stone Additional Diagnosis: -MS -Hypokalemia Discharge Disposition: STR Discharge Instructions General Discharge Information Code Status: Full Code Patient's Diet: Regular as tolerated Patient's Activity: As tolerated Follow-Up Instructions/Appts: -Please follow-up with your primary doctor within 1 week -Please follow-up with urology Dr. fajardo as an outpatient within 1 week post discharge to address the stent and the kidneys stone Medications at Discharge Discharge Medications: Continue taking these medications: Amantadine HCl (Amantadine) 100 MG TABLET 1 Tablet ORAL TWICE DAILY Comments: Last Taken:06/23/16 Time:10 AM Methylphenidate Hydrochloride (Ritalin) 10 MG TABLET 1 Tablet ORAL TWICE DAILY Comments: Last Taken:06/23/16 Time:8 AM Atorvastatin Calcium (Lipitor) 20 MG TABLET 1 Tablet ORAL DAILY Comments: Last Taken:06/22/16 Time:5 PM Dalfampridine (Ampyra) 10 MG TAB.ER.12H 2 Tablet ORAL TWICE DAILY Comments: Last Taken:06/23/16 Time:10 AM Lisinopril (Prinivil) 10 MG TABLET 1 Tablet ORAL DAILY Comments: NOT GIVEN IN HOSPITAL Paroxetine HCl (Paxil) 10 MG TABLET 1 Tablet ORAL DAILY Comments: Last Taken:06/23/16 Time:10 AM Multivitamin (Daily Value) 1 EACH TABLET 1 Tablet ORAL DAILY Comments: Last Taken:06/23/16 Time:10 AM Cholecalciferol (Vitamin D3) 1,000 UNIT TABLET 5 Tablet ORAL DAILY Comments: Last Taken:06/23/16 Time:10 AM Glatiramer Acetate (Copaxone) 40 MG/ML SYRINGE 1 Syringe Inject into fatty tissue FRIDAY, FRIDAY AND FRIDAY Comments: Last Taken:06/21/16 Time:9 PM Start taking the following new medications: Amoxicillin/Potassium Clav (Augmentin 875-125 Tablet) 875 MG-125 MG TABLET 1 Tablet ORAL TWICE DAILY Qty = 19 No Refills Comments: Last Taken:06/23/16 Time:10 AM Copies To: RENÉ RANGEL,TREVA I. Attending MD Review Statement Documenting Attending: SHMUEL TYLER MD Other Findings: Discharging physician is Dr. Shmuel Tyler. Patient had E coli sepsis secondary to acute pyelonephritis, that was the result of right ureterolithiasis with obstructive hydronephrosis. She was treated with Ceftriaxone in hospital which was switched to Augmentin on discharge to complete the total of 14 day course. Ultimate plan as per urology is shock wave lithotripsy of 1.9cm ureter calculus after completion of antibiosis in 2 weeks
--- NOTE | 2016-06-23 13:28 | NUR ---
1130- BARAJAS REMOVED 1325- PT HAD EXTRA LARGE INCONTINENT VOID
--- NOTE | 2016-06-23 13:29 | NUR ---
0900- PT 98% ON 2L NC. O2 DECREASED TO 1L. PT ON RA AT HOME 1000- O2 SAT 97% ON 1L. O2 DECREASED TO RA. 1100- 02 SAT 96% ON RA. 1130- AFTER GOING FROM BED TO CHAIR, O2 SAT REMAINED 96% ON RA.
--- NOTE | 2016-06-23 13:48 | PN- Urology ---
Subjective Subjective: 2 days post insertion of right ureter stent for right ureterolithiasis and uti Objective Vital Signs and I&Os 99.7 Vital Signs Date Time Temp Pulse Resp B/P Pulse O2 O2 Flow FiO2 Ox Delivery Rate 06/23 0800 98 Nasal 2.0L Cannula 06/23 0618 99.7 98 20 134/76 98 Nasal 2.0L Cannula 06/23 0000 Nasal 2.0L Cannula 06/22 2240 99.6 103 20 140/80 97 Nasal 2.0L Cannula 06/22 1745 94 Nasal 2.0L Cannula 06/22 1600 Nasal 2.0L Cannula 06/22 1443 99.7 105 20 160/80 96 Intake & Output 06/23 1600 06/23 0800 06/23 0000 06/22 1600 06/22 0800 06/22 0000 Intake Total 625 840 850 700 600 Output Total 900 1525 1500 1000 1300 280 Balance -900 -900 -660 -150 -600 320 Intake, IV 525 600 600 600 600 Intake, Oral 100 240 250 100 Number 0 0 Bowel Movements Output, Urine 900 1525 1500 1000 1300 280 Patient 200 lb Weight 99.7 temp was 100.6 yesterday oob in chair . no flank or abdominal pain e.coli uti with positive blood culture gram negative rods Assessment/Plan Assessment/Plan right ureterolithiasis with urosepticemia- now with ureter stent and improving on augmentin now eventual plan: shock wave lithotripsy of 1.9cm ureter calculus after completion of antibiosis in 2 weeks Core Measures/Miscellaneous Venous Thromboembolism VTE Risk Factors: Acute medical illness VTE Contraindications: No Contraindications VTE Diagnosis: No VTE Type: NONE VTE Confirmed by (Test): NONE Beta Ishan Is Beta Ishan a Home Med? Yes Antibiotics Is Patient on Antibiotics? Yes Attending MD Review Statement Attending Statement Attending Assessment/Plan: joão manriquez md
[2016-06-23 14:16] VITALS: BP 134/76
[2016-09-03] MEDS ORDERED: PERCOCET 5-3251 EACH PO (11:03)
[2016-09-03] MEDS ORDERED: AUGMENTIN 500-1 EACH PO (11:26)
== END 2016-06-23 15:25 | DRG 872 ==
LOC: ENRESERVDT → ENRESERVTM → ERH 14:55 → 2NA 16:39 → ERHI 16:39 → 2NA 19:04
PROVIDERS: Dermatology; Emergency Medicine; Internal Medicine; Internal Medicine Hematology & Oncology; Student in an Organized Health Care Education/Training Program; ADMIT Internal Medicine
PROC: 0T768DZ Dilation of Right Ureter with Intraluminal Device, Via Natural or Artificial Opening Endoscopic (ICD-10-PCS; principal; 2016-06-21)
DX: A41.9 Sepsis, unspecified organism (principal); N17.9 Acute kidney failure, unspecified; N13.6 Pyonephrosis; N39.0 Urinary tract infection, site not specified; G35 Multiple sclerosis; I10 Essential (primary) hypertension; F17.210 Nicotine dependence, cigarettes, uncomplicated; E78.5 Hyperlipidemia, unspecified; M21.372 Foot drop, left foot; M65.30 Trigger finger, unspecified finger; E87.6 Hypokalemia; B96.20 Unspecified Escherichia coli [E. coli] as the cause of diseases classified elsewhere
CPT/HCPCS: 2NASP; 36415; 74000; 74176; 81001; 82436; 87040; 87070; 87086; 87804; 87804-59; 93005; 93010; 96374; 96375; 97161-GP; 97530-GO; C2617; G9017; J0131; J0696; J0713; J1200; J1595; J1644; J1885; J2405; J7040

== ENCOUNTER → 2016-07-16 | Day surgery (SDC) | payer OTHER, MEDICARE ==
[~2016-07-16] VITALS: Ht 160 cm; Wt 90.3 kg
[~2016-07-16] MED LIST: AMANTADINE100 M2 PO; AMPYRA10 M1 PO; AUGMENTIN 500-1 EACH PO; AUGMENTIN 875-1 EACH PO; COPAXONE40 MG/1 ML SC; DAILY VALUE1 EACH PO; LIPITOR20 M2 PO; PAXIL10 M1 PO; PERCOCET 5-3251 EACH PO; PRINIVIL10 M1 PO; RITALIN10 MG PO; VITAMIN D31000 UNI2 PO
--- NOTE | 2016-07-16 09:24 | Operative Report ---
Operative/Inv Procedure Report Surgery Date: 07/16/16 Name of Procedure: right ureter ESWL. fluoroscopy Pre-Operative Diagnosis: right ureter and renal stones (very large) with stent Post-Operative Diagnosis: same Estimated Blood Loss: none Surgeon/Hair Cutter: JAILENE CEDENO MD Anesthesia: moderate sedation Specimens: none Complications: none Operative/Procedure Note Note: The patient was taken to the operating room and placed on the ESWL table in supine position. With the patient awake, timeout was performed to cofirm correct identity, procedure, laterality, anesth., and other pertinent thaddeus- operative information. The patient's RIGHT flank was placed over the table cut -out, overlying the dome of the shockwave generator. C-arm fluroscopy, as well as renal US, was used to locate the stone, and evaluate the RIGHT kidney. The stone was clearly visible on fluoroscopy at the mid-right ureter, measuring approximately 19 mm. Renal US confirmed decreased hydronephrosis, and one additional 20 mm stone at MP, no tumor, seen in the right kidney. After adequate anesthesia, the right ureter stone's position was optimized for Shockwave lithotrypsy using fluoroscopy in AP and oblique views. The E.S.W.L. was initiated at low power levels x 200 shocks. After noting the patient's tolerance to the shockwaves, the shock wave power level was quickly maximized. Toward the end of the procedure, the composition of the stone had changed significantly indicating the pulverization of the ureter stone. The maximum number of (3000) shockwaves were delivered to the stone. Unfortunately, the stones composition did not change significantly. The stent, therefore, was left in place until the additional procedures are planned/completed. The patient tolerated the procedure well, was awakened, and taken to recovery in satisfactory condition via stretcher. The pt. will be dischared home with pain meds, diet orders, and intructions to catch fragments by straining the urine. The patient is to have follow-up renal ultrasound and KUB in 1-2 weeks, prior to follow-up visit in my office. Findings: large right ureter stone (1.9 cm) did NOT break sufficiently to remove the stent. will have to discuss and proceed with ureteroscopy in few weeks. Discharge Disposition: Same Day Admissions CC: JAILENE CEDENO MD
== END ==
LOC: STS 01:33
DX: N13.2 Hydronephrosis with renal and ureteral calculous obstruction (principal); G35 Multiple sclerosis; I10 Essential (primary) hypertension; E78.5 Hyperlipidemia, unspecified; N39.0 Urinary tract infection, site not specified
CPT/HCPCS: J2250

== ENCOUNTER → 2016-08-13 | Day surgery (SDC) | payer OTHER, MEDICARE ==
[~2016-08-13] VITALS: Ht 160 cm; Wt 98.4 kg
--- NOTE | 2016-08-13 10:57 | Operative Report ---
Operative/Inv Procedure Report Surgery Date: 08/13/16 Name of Procedure: right renal ESWL/fluorosocopy Pre-Operative Diagnosis: right renal stones. Post-Operative Diagnosis: same Estimated Blood Loss: none Surgeon/Product Marketing Director: JAILENE CEDENO MD Anesthesia: moderate sedation Specimens: none Complications: none Operative/Procedure Note Note: The patient was taken to the operating room placed on the OR table in supine position. Timeout was performed, with the patient awake, in order to confirm correct procedure, laterality, anesthesia, and other pertinent perioperative information. After adequate anesthesia and antibiotics, the patient was then positioned over the ESWL table cutout overlying the treatment dome. Fluoroscopy , using AP and oblique views, as well as renal ultrasound, or performed in order to locate the stone. The position of the stone was optimized and positioned in the middle of the ESWL crosshairs. The stone was measured to be approximately 7 mm in size. ESWL was initiated at low power, and after 200 shockwaves delivered , noting the patient's tolerance to the shockwaves, the power was increased to maximum. At the end of 2500 shockwaves, fluoroscopy confirms the change in consistency of the stone, indicating shattering of the stone. The patient tolerated the procedures well, and was taken to the recovery room in satisfactory condition. The patient is discharged home with pain medication, and follow-up instructions with in 2-3 weeks' time. Findings: 7mm right midpole stone shattered at 2500. stent remains in place CC: JAILENE CEDENO MD
== END ==
LOC: STS 02:49
DX: N20.0 Calculus of kidney (principal); N31.9 Neuromuscular dysfunction of bladder, unspecified; R32 Unspecified urinary incontinence; G35 Multiple sclerosis; I10 Essential (primary) hypertension
CPT/HCPCS: J1885; J2250

== ENCOUNTER → 2016-09-05 | Day surgery (SDC) | payer OTHER, MEDICARE ==
[~2016-09-05] VITALS: Ht 160 cm; Wt 98.4 kg
--- NOTE | 2016-09-05 15:03 | Operative Report ---
Operative/Inv Procedure Report Surgery Date: 09/05/16 Name of Procedure: Cystoscopy. Right ureteroscopy with laser lithotripsy of ureter stone. Right stent exchange. Fluoroscopy. Right retrograde pyelogram. Left retrograde pyelogram. Pre-Operative Diagnosis: Right mid ureter stone. Right stent. Left colic. Post-Operative Diagnosis: Same Estimated Blood Loss: scant Surgeon/Roadmaster: JAILENE CEDENO MD Anesthesia: laryngeal mask airway Specimens: Right ureter stone fragments. The ends. Complications: Improved none Operative/Procedure Note Note: The patient was taken to the operating room and placed on the OR table in supine position. With the patient awake, timeout was performed in order to confirm; correct patient, correct procedure, as well as correct laterality, and other pertinent thaddeus-operative information. After adequate anesthesia and antibiotics , the patient was then placed lithotomy stirrups, draped and prepped in the usual surgical fashion. A 22 Lithuanian cystoscope sheath with 30 angle lens was inserted into the bladder without difficulty. Upon entering the bladder, the bladder was noted to be free of tumor free of stone. Both orifices were in their orthotopic position. Right ureter had a stent in place, which was grasped with an alligator forcep, and the entire right stent was removed without difficulty. The left orifice was intubated with an 8 Lithuanian cone-tipped catheter, and retrograde pyelograms performed. No filling defect was noted in the left ureter , with brisk reflux of contrast material from the left. At this point The right ureter orifice was intubated with an 8fr cone-tip catheter, and a retrograde pyelogram with fluoroscopy was performed. An 20 mm right proximal ureter filling defect c/w stone was visualized, as well as, mild right proximal hydronephrosis, and slow drainage of contrast material. The cone-tipped catheter was removed, followed by insertion of a 0.035 Glidewire, which was advanced into the right renal pelvis without difficulty. Proper placement of the Glidewire was confirmed on fluoroscopy. Leaving the Glidewire in place, the cystoscope was removed. Using a rigid Micro-6 ureteroscope, the bladder was then re-entered under direct visualization. The rigth ureter orifice was clearly visible, and wide open. The ureteroscope was ealily advanced/inserted into the open ureter under direct visualization. The ureteroscope was advanced easily and gently into the proximal ureter, and the large ureteral stone was visualized. Under direct visualization the 400 g holmium YAG laser fiber was inserted through the ureteroscope. With the laser fiber in direct contact with the stone, laser lithotripsy was performed in order to pulverize the stone into multiple tiny fragments. The fragments were flushed out and sent to pathology for analysis. At this point, the ureteroscope was then gently advanced into the right renal pelvis without difficulty. No other stones, nor any tumor was visualized in the renal pelvis. The entire length of the ureter was aslo visualize carefully on the way out with the ureteroscope, and the same findings of no stones or tumor was confirmed. The 22 [place]ian cystoscope sheath with a 30 angle lens was then reinserted into the bladder, with the Glidewire back loaded into the scope. A 6 x 24 Bard Opti- Lay ureteral stent was inserted over the Glidewire. With the proximal coil advanced into the right renal pelvis, confirmed on fluoroscopy, and the distal coil seen in the bladder, cystoscopically, the Glidewire was removed and the stent remained in proper place. The bladder was then drained, and the cystoscope was removed. The patient tolerated the procedure well was then taken to the recovery room in satisfactory condition. The patient is to follow up in 1-2 weeks for stent removal. Findings: 2 cm right mid ureter stone. Discharge Disposition: Same Day Admissions Additional Comments: Follow-up for stent removal. CC: JAILENE CEDENO MD
--- NOTE | 2016-09-06 07:52 | RADIOLOGY REPORT ---
EXAMINATION: XR ABDOMEN CLINICAL INDICATION: Ureteroscopy bilateral stent placement. COMPARISON: Renal ultrasound 08/27/2016, KUB 08/27/2016. TECHNIQUE: 24 fluoroscopic spot views are provided, performed during bilateral ureteral stent placement. Fluoroscopy time is reported to be 47 seconds. FINDINGS: Images demonstrate catheterization of both ureters with wires placed and ureteral stents.
== END ==
LOC: STS 01:22
DX: N13.2 Hydronephrosis with renal and ureteral calculous obstruction (principal); G35 Multiple sclerosis; Z87.891 Personal history of nicotine dependence; I10 Essential (primary) hypertension
CPT/HCPCS: 36415; 74000; 82355; 87086; C2617; J0131; J0696; J2250